=== PATIENT | male | born 1975 | race Caucasian/White ===

== ENCOUNTER 2019-10-18 09:37 | Emergency (ER) | payer OTHER ==
[~2019-10-18] VITALS: Ht 182.9 cm; Wt 87.4 kg
[2019-10-18 09:42] VITALS: BP 164/101
[2019-10-18] MEDS ORDERED: PARO-62 PO (10:45)
== END 2019-10-18 11:10 | disposition home or self-care (01) ==
LOC: ER 09:37
DX: F41.9 Anxiety disorder, unspecified (principal); Z79.899 Other long term (current) drug therapy
CPT/HCPCS: 99281; 99283

== ENCOUNTER 2019-11-25 13:00 | Emergency (ER) | payer OTHER ==
[~2019-11-25] VITALS: Ht 182.9 cm; Wt 77.3 kg
[~2019-11-25 13:00] MED LIST: PARO-62 PO
[2019-11-25 13:56] LABS: BASOPHILS % (AUTO) 0.5 % (0-1); EOSINOPHILS # (AUTO) 0.3 X10'3 (0-0.9); EOSINOPHILS % (AUTO) 4.5 % (0-6); HEMATOCRIT 39.9 % (42.0-52.0); HEMOGLOBIN 13.8 g/dl (14.0-17.9); LYMPHOCYTES # (AUTO) 2.2 X10'3 (1.1-4.8); LYMPHOCYTES % (AUTO) 39.2 % (21-51); MEAN CORPUSCULAR HEMOGLOBIN 31.1 PG (27.0-31.0); MEAN CORPUSCULAR HGB CONC 34.5 g/dL (33.0-36.5); MEAN CORPUSCULAR VOLUME 90.1 FL (78-98); MEAN PLATELET VOLUME 7.5 FL (7.4-10.4); MONOCYTES # (AUTO) 0.6 X10'3 (0-0.9); MONOCYTES % (AUTO) 10.2 % (2-12); NEUTROPHILS # (AUTO) 2.6 X10'3 (1.8-7.7); NEUTROPHILS % (AUTO) 45.6 % (42-75); PLATELET COUNT 283 X10'3 (140-440); RED BLOOD COUNT 4.43 X10'6 (4.70-6.10); RED CELL DISTRIBUTION WIDTH 13.8 % (11.5-14.5); WHITE BLOOD COUNT 5.6 X10'3 (4.5-11.0)
[2019-11-25 14:10] LABS: ALANINE AMINOTRANSFERASE 47 U/L (12-78); ALBUMIN 3.6 G/DL (3.4-5.0); ALBUMIN/GLOBULIN RATIO 0.9 (1.1-1.5); ANION GAP 12 (8-16); ASPARTATE AMINO TRANSFERASE 41 U/L (10-37); BILIRUBIN,TOTAL 0.4 MG/DL (0.1-1.0); BLOOD UREA NITROGEN 10 MG/DL (7-18); BUN/CREATININE RATIO 12.7 (5.4-32.0); CALCIUM 8.4 MG/DL (8.5-10.1); CHLORIDE 106 MMOL/L (99-107); CREATININE 0.79 MG/DL (0.60-1.10); GLUCOSE 146 MG/DL (70-104); POTASSIUM 3.6 MMOL/L (3.5-5.1); SODIUM 143 MMOL/L (135-145); TOTAL CARBON DIOXIDE 24.7 MMOL/L (24-32); TOTAL PROTEIN 7.4 G/DL (6.4-8.2); eGFR > 90 ML/MIN
[2019-11-25 14:11] LABS: ALKALINE PHOSPHATASE 62 IU/L (46-116)
--- NOTE | 2019-11-25 14:41 | NUR ---
PT IS IN A POSITION OF COMFORT ON THE GURNEY
[2019-11-25 15:54] VITALS: BP 156/89
[2019-11-26] MEDS ORDERED: LORA-269 PO (09:00)
[2019-11-26] MEDS ORDERED: ATEN25TA PO (09:00)
== END 2019-11-25 15:55 | disposition home or self-care (01) ==
LOC: ER 13:01
DX: R00.2 Palpitations (principal); F41.9 Anxiety disorder, unspecified; Z79.899 Other long term (current) drug therapy
CPT/HCPCS: 36415; 71045; 80053; 84484; 85025; 93005; 99285

== ENCOUNTER 2019-11-26 08:17 | Emergency (ER) | payer OTHER ==
[~2019-11-26] VITALS: Ht 182.9 cm; Wt 77.3 kg
[2019-11-26] MEDS ORDERED: LORA-269 PO (09:00)
[2019-11-26] MEDS ORDERED: metoprolol tartrate 50mg tablet PO ONE (09:00)
[2019-11-26] MEDS ORDERED: ATEN25TA PO (09:00)
[2019-11-26 09:26] VITALS: BP 157/83
== END 2019-11-26 09:29 | disposition home or self-care (01) ==
LOC: ER 08:18
DX: I10 Essential (primary) hypertension (principal); F41.9 Anxiety disorder, unspecified; Z59.0 Homelessness; Z79.899 Other long term (current) drug therapy
CPT/HCPCS: 93005; 99283

== ENCOUNTER 2020-08-11 14:09 | Emergency (ER) | payer MEDICAID, OTHER ==
[~2020-08-11] VITALS: Ht 182.9 cm; Wt 90.9 kg
[~2020-08-11 14:09] MED LIST changes: +ATEN25TA PO; +LORA-269 PO
--- NOTE | 2020-08-11 14:44 | NUR ---
patietn here for a paxil 20 mg daily refill trying to get it refilled thru [facility]
[2020-08-11 14:45] VITALS: BP 134/87
[2020-08-11] MEDS ORDERED: PARO-62 PO (14:48)
== END 2020-08-11 14:53 | disposition home or self-care (01) ==
LOC: ER 14:10
DX: R07.89 Other chest pain (principal); Z76.0 Encounter for issue of repeat prescription; Z59.0 Homelessness; Z79.899 Other long term (current) drug therapy
CPT/HCPCS: 93005; 99283

== ENCOUNTER 2021-04-05 22:19 | Emergency (ER) | payer MEDICAID, OTHER ==
[~2021-04-05] VITALS: Ht 182.9 cm; Wt 90.0 kg
[2021-04-05] MEDS ORDERED: fentaNYL/PF 50MCG/1 ML 2ML syringe IV ONE (23:50)
[2021-04-06] MEDS ORDERED: morphine 4 MG/ML inj SYRINge IV ONE (02:10)
[2021-04-06] MEDS ORDERED: OXYC-145 PO ×2 (02:42)
[2021-04-06] MEDS ORDERED: oxyCODONE/APAP 5-325mg tablet PO ONE (03:35)
[2021-04-06 03:55] VITALS: BP 113/79
[2021-04-12] MEDS ORDERED: PARO20TA6 PO (16:54)
== END 2021-04-06 03:58 | disposition home or self-care (01) ==
LOC: ER 22:20
DX: S82.201A Unspecified fracture of shaft of right tibia, initial encounter for closed fracture (principal); S82.401A Unspecified fracture of shaft of right fibula, initial encounter for closed fracture; M79.604 Pain in right leg; F41.9 Anxiety disorder, unspecified; Z72.89 Other problems related to lifestyle; Z59.00 Homelessness unspecified; Z79.899 Other long term (current) drug therapy; V99.XXXA Unspecified transport accident, initial encounter; Y93.89 Activity, other specified; Y92.89 Other specified places as the place of occurrence of the external cause; Y99.8 Other external cause status
CPT/HCPCS: 29505; 73590; 96374; 96375; 99284; J2270; J3010

== ENCOUNTER 2021-04-15 09:27 | Day surgery (SDC) | payer MEDICAID ==
[~2021-04-15] VITALS: Ht 182.9 cm; Wt 90.0 kg
[2021-04-15] VITALS (28 sets, daily range): BP systolic 116–173; BP diastolic 76–105
[~2021-04-15 09:27] MED LIST changes: -ATEN25TA PO; -LORA-269 PO; -PARO-62 PO; +PARO20TA6 PO; +ceFAZolin 2gm in dextrose, iso 50 ML IV ONE; +famotidine 20mg tablet PO ONE; +ringers solution, lacted 1,000 ML IV SCH
[2021-04-15 10:30] LABS: BASOPHILS % (AUTO) 0.5 % (0-1); EOSINOPHILS # (AUTO) 0.3 X10'3 (0-0.9); EOSINOPHILS % (AUTO) 3.1 % (0-6); LYMPHOCYTES % (AUTO) 24.2 % (21-51); MEAN CORPUSCULAR HGB CONC 34.8 g/dL (33.0-36.5); MEAN CORPUSCULAR VOLUME 89.2 FL (78-98); MEAN PLATELET VOLUME 7.4 FL (7.4-10.4); MONOCYTES # (AUTO) 0.8 X10'3 (0-0.9); NEUTROPHILS # (AUTO) 5.3 X10'3 (1.8-7.7); NEUTROPHILS % (AUTO) 63.2 % (42-75); PRE OP HEMATOCRIT 39.8 % (42.0-52.0); PRE OP HEMOGLOBIN 13.8 g/dL (14.0-17.9); PRE OP PLATELET COUNT 394 X10'3 (140-440); RED BLOOD COUNT 4.46 X10'6 (4.70-6.10)
[2021-04-15 10:40] LABS: ALBUMIN 3.6 G/DL (3.4-5.0); ALBUMIN/GLOBULIN RATIO 0.8 (1.1-1.5); ALKALINE PHOSPHATASE 81 IU/L (46-116); BLOOD UREA NITROGEN 14 MG/DL (7-18); BUN/CREATININE RATIO 15.4 (5.4-32.0); CALCIUM 9.3 MG/DL (8.5-10.1); CHLORIDE 102 MMOL/L (99-107); CREATININE 0.91 MG/DL (0.60-1.10); PRE OP ALT 37 U/L (30-65); PRE OP ANION GAP 7 (8-16); PRE OP AST 24 U/L (10-37); PRE OP BILIRUB, TOTAL 0.7 MG/DL (0.0-1.0); PRE OP GLUCOSE 96 MG/DL (70-104); PRE OP SODIUM 135 MMOL/L (135-145); TOTAL CARBON DIOXIDE 26.3 MMOL/L (24-32); eGFR > 90 ML/MIN
[2021-04-15] MEDS ORDERED: BUPIVAcaine/PF 2.5 mg/ml (0.25%) 30ml vial ONE (10:40)
[2021-04-15] MEDS ORDERED: midazolam 1 mg/ML 2ml injection ONE (11:01)
[2021-04-15] MEDS ORDERED: fentaNYL /PF 50mcg/ml 5ml ampule ONE (11:01)
[2021-04-15] MEDS ORDERED: meperidine/PF 25mg/ml syringe IV PRN ×3 (11:50)
[2021-04-15] MEDS ORDERED: morphine 2 MG/ML inj. syringe IV PRN (11:50)
[2021-04-15] MEDS ORDERED: morphine 4 MG/ML inj SYRINge IV PRN (11:50)
[2021-04-15] MEDS ORDERED: proCHLORperazine 10 MG/2 ml inj IV PRN (11:50)
[2021-04-15] MEDS ORDERED: ondansetron/PF 4mg/2ml inj IV PRN (11:50)
[2021-04-15] MEDS ORDERED: ringers solution, lacted 1,000 ML IV SCH (11:50)
[2021-04-15] MEDS ORDERED: acetaminophen 1,000mg/100ml IV 100 ML IV ONE (12:02)
[2021-04-15] MEDS ORDERED: dexamethasone sod phosphate 4mg/ml inj. ONE ×2 (12:02→13:55)
[2021-04-15] MEDS ORDERED: LIDOcaine 2% (20mg/ml) 5ml vial ONE (12:02)
[2021-04-15] MEDS ORDERED: ondansetron/PF 4mg/2ml inj ONE (12:02)
[2021-04-15] MEDS ORDERED: propofol inj 20 ML IV ONE (12:02)
[2021-04-15] MEDS ORDERED: hydrALAZINE 20mg/ml inj. IV ONE (12:02)
[2021-04-15] MEDS ORDERED: neostigmine methylsulfate 1 MG/ML 10ml vial ONE (12:18)
[2021-04-15] MEDS ORDERED: glycopyrrolate 0.2mg/ml inj ONE (12:18)
[2021-04-15] MEDS ORDERED: morphine 4 MG/ML inj SYRINge ONE (12:25)
--- NOTE | 2021-04-15 12:35 | NUR ---
Received from OR via [facility], accompanied by Anesthesiologist DR MOYER and report given by Anesthesiologist. PT DROWSY W/LMA, NO S/S OF DISTRESS/DISCOMFORT. LMA D/CD BY DR MOYER. PTS BP ELEVATED, ORDERS RECEIVED BY DR MOYER TO GIVE 5 MG LABETALOL. Addendum: 04/15/21 at 1332 by Ana Ravi RN Amended: Links added.
[2021-04-15] MEDS ORDERED: labetalol 20mg/4ml (5mg/ml) syringe IV ONE (12:45)
[2021-04-15] MEDS ORDERED: ketorolac trometh. 30mg/ml inj. IV ONE (13:10)
[2021-04-15] MEDS ORDERED: HYDROmorphone/PF 0.2 MG/ML SYRINGE IV PRN (13:10)
[2021-04-15] MEDS ORDERED: HYDROmorphone/PF 0.2 MG/ML SYRINGE ONE (13:13)
--- NOTE | 2021-04-15 13:17 | NUR ---
PT IN SEVERE PAIN, DR MOYER AT BEDSIDE, ORDERS TO GIVE DILAUDID AND ORDER TORADOL, 0.2 MG DILAUDID GIVEN, WAITING TO GIVE TORADOL AND 0.4 MG DILAUDID ONCE RX APPROVES MEDICATION. Addendum: 04/15/21 at 1318 by Ana Ravi RN Amended: Links added.
[2021-04-15] MEDS: HYDROmorphone/PF 0.2 MG/ML SYRINGE IV PRN ×2 (13:23→13:51)
[2021-04-15] MEDS ORDERED: cloNIDine hcl/PF 100mcg/ml inj ONE (13:52)
[2021-04-15] MEDS ORDERED: ROPIVAcaine 0.5% (5mg/ml) 30ml vial ONE (13:53)
--- NOTE | 2021-04-15 14:20 | NUR ---
PT CONTINUED W/PAIN, CALLED DR CONDON EARLIER, IS AWARE, DR MOYER HERE, DISCUSSED ADDUCTOR CANAL BLOCK W/PT AND PTS PARENTS WHO AGREE FOR BLOCK, DONE AT BEDSIDE W/DR MOYER. PT TOLERATED PROCEDURE WELL. Addendum: 04/15/21 at 1423 by Ana Ravi RN Amended: Links added.
--- NOTE | 2021-04-15 15:15 | NUR ---
DR CONDON IN TO SEE PT, PT PAIN MUCH IMPROVED, PLAN TO D/C PT HOME LATER TODAY. Addendum: 04/15/21 at 1603 by Ana Ravi RN Amended: Links added.
--- NOTE | 2021-04-15 18:15 | NUR ---
PTS PAIN TOLERABLE, PT VOIDED X 2, BLADDER SCANNED FOR 200 ML POST VOID, CALLED DR CONDON AND UPDATED, [place] TO D/C PT TO HOME. D/C INSTRUCTIONS GIVEN AND GONE OVER W/PT WHO VERBALIZED UNDERSTANDING. PT D/CD TO HOME VIA W/C TO PRIVATE VEHICLE W/O INCIDENT. Addendum: 04/15/21 at 1826 by Ana Ravi RN Amended: Links added.
== END 2021-04-15 18:15 | disposition home or self-care (01) ==
LOC: OR 09:27
PROVIDERS: ATTEND Orthopaedic Surgery Hand Surgery
DX: S82.291A Other fracture of shaft of right tibia, initial encounter for closed fracture (principal); S82.491A Other fracture of shaft of right fibula, initial encounter for closed fracture; F41.9 Anxiety disorder, unspecified; G89.18 Other acute postprocedural pain; Z20.822 Contact with and (suspected) exposure to COVID-19; Z79.899 Other long term (current) drug therapy; X58.XXXA Exposure to other specified factors, initial encounter; Y93.89 Activity, other specified; Y92.89 Other specified places as the place of occurrence of the external cause; Y99.8 Other external cause status
CPT/HCPCS: 27759; 36415; 64447; 73590; 76000; 76942; 80053; 85025; 87635; 93005; A6222; C1713; C9803; J0131; J0360; J0735; J1100; J1170; J1885; J2001; J2250; J2270; J2405; J2704; J2710; J3010; J3490; Z7506; Z7508; Z7512; A4215; A4618; A6449; A7000; J2795; J7120

== ENCOUNTER 2021-11-23 10:03 | Emergency (ER) | payer MEDICAID ==
[~2021-11-23] VITALS: Ht 182.9 cm; Wt 90.0 kg
[~2021-11-23 10:03] MED LIST changes: -ceFAZolin 2gm in dextrose, iso 50 ML IV ONE; -famotidine 20mg tablet PO ONE; -ringers solution, lacted 1,000 ML IV SCH
[2021-11-23 11:49] LABS: BASOPHILS # (AUTO) 0.1 X10'3 (0-0.2); EOSINOPHILS # (AUTO) 0.2 X10'3 (0-0.9); EOSINOPHILS % (AUTO) 4.9 % (0-6); HEMOGLOBIN 13.9 g/dl (14.0-17.9); LYMPHOCYTES # (AUTO) 2.2 X10'3 (1.1-4.8); MEAN CORPUSCULAR HEMOGLOBIN 30.7 PG (27.0-31.0); MEAN CORPUSCULAR HGB CONC 34.8 g/dL (33.0-36.5); MEAN CORPUSCULAR VOLUME 88.1 FL (78-98); MEAN PLATELET VOLUME 7.4 FL (7.4-10.4); MONOCYTES # (AUTO) 0.6 X10'3 (0-0.9); MONOCYTES % (AUTO) 12.7 % (2-12); NEUTROPHILS # (AUTO) 1.9 X10'3 (1.8-7.7); NEUTROPHILS % (AUTO) 38.4 % (42-75); PLATELET COUNT 226 X10'3 (140-440); RED BLOOD COUNT 4.55 X10'6 (4.70-6.10); RED CELL DISTRIBUTION WIDTH 13.6 % (11.5-14.5); WHITE BLOOD COUNT 5.1 X10'3 (4.5-11.0)
[2021-11-23 12:13] LABS: ALANINE AMINOTRANSFERASE 58 U/L (12-78); ALBUMIN 3.8 G/DL (3.4-5.0); ALKALINE PHOSPHATASE 73 IU/L (46-116); ANION GAP 6 (8-16); ASPARTATE AMINO TRANSFERASE 45 U/L (10-37); BILIRUBIN,TOTAL 0.5 MG/DL (0.1-1.0); BLOOD UREA NITROGEN 9 MG/DL (7-18); BUN/CREATININE RATIO 10.5 (5.4-32.0); CALCIUM 8.5 MG/DL (8.5-10.1); CHLORIDE 103 MMOL/L (99-107); CREATININE 0.86 MG/DL (0.60-1.10); GLUCOSE 102 MG/DL (70-104); POTASSIUM 4.5 MMOL/L (3.5-5.1); SODIUM 137 MMOL/L (135-145); TOTAL CARBON DIOXIDE 28.2 MMOL/L (24-32); TOTAL PROTEIN 7.6 G/DL (6.4-8.2); eGFR > 90 ML/MIN
[2021-11-23 12:15] VITALS: BP 132/78
== END 2021-11-23 12:30 | disposition home or self-care (01) ==
LOC: ER 10:04
DX: F10.239 Alcohol dependence with withdrawal, unspecified (principal); R07.89 Other chest pain; R00.2 Palpitations; M79.602 Pain in left arm; F41.9 Anxiety disorder, unspecified; Z59.00 Homelessness unspecified; Z79.899 Other long term (current) drug therapy; Y90.0 Blood alcohol level of less than 20 mg/100 ml
CPT/HCPCS: 36415; 71045; 80053; 84484; 85025; 93005; 99285

== ENCOUNTER 2022-04-01 10:50 | Emergency (ER) | payer MEDICAID ==
[~2022-04-01] VITALS: Ht 182.9 cm; Wt 90.9 kg
[2022-04-01 10:58] VITALS: BP 162/109
[2022-04-01 11:14] LABS: BASOPHILS # (AUTO) 0.1 X10'3 (0-0.2); BASOPHILS % (AUTO) 0.7 % (0-1); EOSINOPHILS # (AUTO) 0.3 X10'3 (0-0.9); EOSINOPHILS % (AUTO) 2.9 % (0-6); HEMATOCRIT 41.8 % (42.0-52.0); HEMOGLOBIN 14.6 g/dl (14.0-17.9); LYMPHOCYTES # (AUTO) 2.8 X10'3 (1.1-4.8); LYMPHOCYTES % (AUTO) 32.6 % (21-51); MEAN CORPUSCULAR HEMOGLOBIN 31.5 PG (27.0-31.0); MEAN CORPUSCULAR HGB CONC 35.1 g/dL (33.0-36.5); MEAN CORPUSCULAR VOLUME 89.7 FL (78-98); MEAN PLATELET VOLUME 7.5 FL (7.4-10.4); MONOCYTES # (AUTO) 0.7 X10'3 (0-0.9); MONOCYTES % (AUTO) 8.1 % (2-12); NEUTROPHILS # (AUTO) 4.8 X10'3 (1.8-7.7); NEUTROPHILS % (AUTO) 55.7 % (42-75); PLATELET COUNT 334 X10'3 (140-440); RED BLOOD COUNT 4.65 X10'6 (4.70-6.10); RED CELL DISTRIBUTION WIDTH 13.2 % (11.5-14.5); WHITE BLOOD COUNT 8.7 X10'3 (4.5-11.0)
[2022-04-01 11:43] LABS: ALANINE AMINOTRANSFERASE 63 U/L (12-78); ALBUMIN 3.7 G/DL (3.4-5.0); ALBUMIN/GLOBULIN RATIO 0.9 (1.1-1.5); ALKALINE PHOSPHATASE 74 IU/L (46-116); ANION GAP 9 (8-16); ASPARTATE AMINO TRANSFERASE 43 U/L (10-37); BILIRUBIN,TOTAL 0.3 MG/DL (0.1-1.0); BLOOD UREA NITROGEN 11 MG/DL (7-18); BUN/CREATININE RATIO 12.9 (5.4-32.0); CALCIUM 8.9 MG/DL (8.5-10.1); CHLORIDE 103 MMOL/L (99-107); CREATININE 0.85 MG/DL (0.60-1.10); GLUCOSE 140 MG/DL (70-104); LIPASE 96 U/L (73-393); POTASSIUM 3.8 MMOL/L (3.5-5.1); SODIUM 139 MMOL/L (135-145); TOTAL CARBON DIOXIDE 26.9 MMOL/L (24-32); TOTAL PROTEIN 7.6 G/DL (6.4-8.2); eGFR > 90 ML/MIN
--- NOTE | 2022-04-01 15:22 | NUR ---
Attempted to contact patient, Patient was not in lobby when called back to room. Per cash accounting clerk, patient had stated they were leaving. aware.
== END 2022-04-01 15:23 | disposition left against medical advice (07) ==
LOC: ER 10:50
DX: R10.9 Unspecified abdominal pain (principal); Z53.21 Procedure and treatment not carried out due to patient leaving prior to being seen by health care provider
CPT/HCPCS: 36415; 80053; 83690; 85025

== ENCOUNTER 2023-04-22 13:45 | Emergency (ER) | payer MEDICAID ==
[~2023-04-22] VITALS: Ht 182.9 cm; Wt 100.0 kg
[2023-04-22 14:33] LABS: BASOPHILS # (AUTO) 0.1 X10'3 (0-0.2); BASOPHILS % (AUTO) 0.6 % (0-1); EOSINOPHILS # (AUTO) 0.5 X10'3 (0-0.9); EOSINOPHILS % (AUTO) 4.7 % (0-6); HEMATOCRIT 39.1 % (42.0-52.0); HEMOGLOBIN 13.1 g/dl (14.0-17.9); LYMPHOCYTES # (AUTO) 3.3 X10'3 (1.1-4.8); LYMPHOCYTES % (AUTO) 32.4 % (21-51); MEAN CORPUSCULAR HEMOGLOBIN 30.1 PG (27.0-31.0); MEAN CORPUSCULAR HGB CONC 33.5 g/dL (33.0-36.5); MEAN CORPUSCULAR VOLUME 89.9 FL (78-98); MEAN PLATELET VOLUME 7.8 FL (7.4-10.4); MONOCYTES # (AUTO) 0.9 X10'3 (0-0.9); MONOCYTES % (AUTO) 9.2 % (2-12); NEUTROPHILS # (AUTO) 5.4 X10'3 (1.8-7.7); NEUTROPHILS % (AUTO) 53.1 % (42-75); PLATELET COUNT 275 X10'3 (140-440); RED BLOOD COUNT 4.35 X10'6 (4.70-6.10); WHITE BLOOD COUNT 10.2 X10'3 (4.5-11.0)
[2023-04-22 14:58] LABS: ALANINE AMINOTRANSFERASE 43 U/L (12-78); ALBUMIN 3.7 G/DL (3.4-5.0); ALKALINE PHOSPHATASE 61 IU/L (46-116); ANION GAP 12 (8-16); ASPARTATE AMINO TRANSFERASE 35 U/L (10-37); BILIRUBIN,TOTAL 0.5 MG/DL (0.1-1.0); BLOOD UREA NITROGEN 11 MG/DL (7-18); BUN/CREATININE RATIO 11.8 (10.0-20.0); CALCIUM 9.1 MG/DL (8.5-10.1); CHLORIDE 102 MMOL/L (99-107); CREATININE 0.93 MG/DL (0.60-1.10); GLUCOSE 131 MG/DL (70-104); POTASSIUM 3.7 MMOL/L (3.5-5.1); SODIUM 138 MMOL/L (135-145); TOTAL CARBON DIOXIDE 24.3 MMOL/L (24-32); TOTAL PROTEIN 7.5 G/DL (6.4-8.2); eCRCL 109 ML/MIN; eGFR 87 ML/MIN
[2023-04-22 15:25] VITALS: BP 149/103; PULSE 83; RESP 14; TEMP 98.3; O2SAT 99
== END 2023-04-22 16:53 | disposition home or self-care (01) ==
LOC: ER 13:46
DX: R07.9 Chest pain, unspecified (principal); F41.9 Anxiety disorder, unspecified
CPT/HCPCS: 36415; 71045; 80053; 83880; 84484; 85025; 93005; 99285

== ENCOUNTER 2023-06-05 20:36 | Emergency (ER) | payer SELFPAY | END 2023-06-05 21:32 | disposition left against medical advice (07) | LOC: ER 20:37 | DX: Z00.8 Encounter for other general examination (principal); Z53.21 Procedure and treatment not carried out due to patient leaving prior to being seen by health care provider ==

== ENCOUNTER 2023-06-20 10:05 | Emergency (ER) | payer MEDICAID ==
[~2023-06-20] VITALS: Ht 182.9 cm; Wt 94.0 kg
[2023-06-20] MEDS ORDERED: normal saline 1000ML IV soln IVB ONE (11:45)
[2023-06-20 12:18] LABS: BILIRUBIN,URINE NEGATIVE (Neg); CLARITY,URINE CLEAR (Clear); COLOR,URINE YELLOW (Yellow); GLUCOSE, URINE NEGATIVE (Neg); KETONES,URINE NEGATIVE (Neg); LEUKOCYTE ESTERASE ,URINE NEGATIVE (Neg); NITRITES, URINE NEGATIVE (Neg); OCCULT BLOOD,URINE NEGATIVE (Neg); PH,URINE 7.5 (4.8-8.0); PROTEIN,URINE TRACE mg/dl (Neg); UROBILINOGEN,URINE 0.2 E.U/dL (0.2-1.0)
[2023-06-20 12:19] LABS: UA COLLECTION TYPE CLN CATCH MIDSTREAM
[2023-06-20 12:27] LABS: BACTERIA,URINE NONE SEEN /HPF (Neg); MUCUS STRANDS NONE SEEN /LPF (Neg); RBC,URINE 0-2 /HPF (0-2); SQUAMOUS EPITHELIAL CELL,UR NONE SEEN /LPF (FEW); WBC,URINE 0-4 /HPF (0-4)
[2023-06-20 12:45] LABS: BASOPHILS # (AUTO) 0.1 X10'3 (0-0.2); BASOPHILS % (AUTO) 0.8 % (0-1); EOSINOPHILS # (AUTO) 0.3 X10'3 (0-0.9); EOSINOPHILS % (AUTO) 3.3 % (0-6); HEMATOCRIT 38.5 % (42.0-52.0); HEMOGLOBIN 12.9 g/dl (14.0-17.9); LYMPHOCYTES # (AUTO) 2.1 X10'3 (1.1-4.8); LYMPHOCYTES % (AUTO) 22.9 % (21-51); MEAN CORPUSCULAR HEMOGLOBIN 29.3 PG (27.0-31.0); MEAN CORPUSCULAR HGB CONC 33.7 g/dL (33.0-36.5); MEAN PLATELET VOLUME 7.9 FL (7.4-10.4); MONOCYTES # (AUTO) 1.2 X10'3 (0-0.9); MONOCYTES % (AUTO) 13.3 % (2-12); NEUTROPHILS # (AUTO) 5.4 X10'3 (1.8-7.7); NEUTROPHILS % (AUTO) 59.7 % (42-75); PLATELET COUNT 235 X10'3 (140-440); RED BLOOD COUNT 4.42 X10'6 (4.70-6.10); RED CELL DISTRIBUTION WIDTH 13.7 % (11.5-14.5); WHITE BLOOD COUNT 9.1 X10'3 (4.5-11.0)
[2023-06-20 12:50] LABS: D-DIMER 0.22 MG/L FEU (0-0.50)
[2023-06-20 13:04] LABS: ALANINE AMINOTRANSFERASE 73 U/L (12-78); ALBUMIN 3.3 G/DL (3.4-5.0); ALBUMIN/GLOBULIN RATIO 0.8 (1.1-1.5); ALKALINE PHOSPHATASE 66 IU/L (46-116); ANION GAP 7 (8-16); ASPARTATE AMINO TRANSFERASE 64 U/L (10-37); BILIRUBIN,TOTAL 0.4 MG/DL (0.1-1.0); BLOOD UREA NITROGEN 8 MG/DL (7-18); BUN/CREATININE RATIO 8.3 (10.0-20.0); CALCIUM 8.8 MG/DL (8.5-10.1); CHLORIDE 101 MMOL/L (99-107); CREATININE 0.96 MG/DL (0.60-1.10); GLUCOSE 94 MG/DL (70-104); POTASSIUM 3.1 MMOL/L (3.5-5.1); SODIUM 137 MMOL/L (135-145); TOTAL CARBON DIOXIDE 28.7 MMOL/L (24-32); TOTAL PROTEIN 7.5 G/DL (6.4-8.2); eCRCL 106 ML/MIN; eGFR 84 ML/MIN
[2023-06-20] MEDS ORDERED: potassium Cl 40MEQ/1/2NS 520ml 520 ML IV ONE (13:55)
[2023-06-20] MEDS ORDERED: POTASSIUM BICARB 20meq eff tab 20 MEQ TABLET.EFF PO SCH (14:05)
[2023-06-20] MEDS ORDERED: ibuprofen 200mg tablet PO ONE (14:10)
[2023-06-20 14:32] VITALS: BP 149/92; PULSE 90; RESP 17; TEMP 98.7; O2SAT 97
== END 2023-06-20 14:34 | disposition home or self-care (01) ==
LOC: ER 10:06
DX: J22 Unspecified acute lower respiratory infection (principal); Z20.822 Contact with and (suspected) exposure to COVID-19; R79.81 Abnormal blood-gas level; I10 Essential (primary) hypertension; Z79.899 Other long term (current) drug therapy
CPT/HCPCS: 36415; 71046; 80053; 81001; 83605; 84484; 85025; 85379; 87040; 87502; 87503; 87811; 93005; 96360; 99285; J7030

== ENCOUNTER 2023-12-31 09:44 | Emergency (ER) | payer MEDICAID, OTHER ==
[~2023-12-31] VITALS: Ht 182.9 cm; Wt 96.0 kg
[2023-12-31 11:00] LABS: BASOPHILS # (AUTO) 0.1 X10'3 (0-0.2); BASOPHILS % (AUTO) 0.9 % (0-1); EOSINOPHILS # (AUTO) 0.4 X10'3 (0-0.9); EOSINOPHILS % (AUTO) 4.2 % (0-6); HEMOGLOBIN 12.1 g/dl (14.0-17.9); LYMPHOCYTES # (AUTO) 2.4 X10'3 (1.1-4.8); LYMPHOCYTES % (AUTO) 28.2 % (21-51); MEAN CORPUSCULAR HEMOGLOBIN 29.4 PG (27.0-31.0); MEAN CORPUSCULAR HGB CONC 33.7 g/dL (33.0-36.5); MEAN CORPUSCULAR VOLUME 87.3 FL (78-98); MEAN PLATELET VOLUME 7.7 FL (7.4-10.4); MONOCYTES # (AUTO) 0.9 X10'3 (0-0.9); MONOCYTES % (AUTO) 11.1 % (2-12); NEUTROPHILS # (AUTO) 4.7 X10'3 (1.8-7.7); NEUTROPHILS % (AUTO) 55.6 % (42-75); PLATELET COUNT 324 X10'3 (140-440); RED BLOOD COUNT 4.13 X10'6 (4.70-6.10); RED CELL DISTRIBUTION WIDTH 15.3 % (11.5-14.5); WHITE BLOOD COUNT 8.5 X10'3 (4.5-11.0)
[2023-12-31 11:10] LABS: ALANINE AMINOTRANSFERASE 72 U/L (12-78); ALBUMIN 3.3 G/DL (3.4-5.0); ALBUMIN/GLOBULIN RATIO 0.8 (1.1-1.5); ALKALINE PHOSPHATASE 63 IU/L (46-116); ANION GAP 9 (8-16); ASPARTATE AMINO TRANSFERASE 56 U/L (10-37); BILIRUBIN,TOTAL 0.5 MG/DL (0.1-1.0); BLOOD UREA NITROGEN 10 MG/DL (7-18); BUN/CREATININE RATIO 11.9 (10.0-20.0); CALCIUM 8.2 MG/DL (8.5-10.1); CHLORIDE 104 MMOL/L (99-107); CREATININE 0.84 MG/DL (0.60-1.10); GLUCOSE 147 MG/DL (70-104); LIPASE 67 U/L (16-77); POTASSIUM 3.5 MMOL/L (3.5-5.1); SODIUM 138 MMOL/L (135-145); TOTAL CARBON DIOXIDE 25.1 MMOL/L (24-32); TOTAL PROTEIN 7.7 G/DL (6.4-8.2); eCRCL 119 ML/MIN; eGFR > 90 ML/MIN
[2023-12-31 11:32] LABS: BILIRUBIN,URINE MODERATE (Neg); CLARITY,URINE CLOUDY (Clear); COLOR,URINE YELLOW (Yellow); GLUCOSE, URINE NEGATIVE (Neg); KETONES,URINE TRACE mg/dl (Neg); LEUKOCYTE ESTERASE ,URINE NEGATIVE (Neg); NITRITES, URINE NEGATIVE (Neg); OCCULT BLOOD,URINE NEGATIVE (Neg); PH,URINE 6.5 (4.8-8.0); PROTEIN,URINE TRACE mg/dl (Neg)
[2023-12-31 11:33] LABS: UA COLLECTION TYPE VOIDED
[2023-12-31 11:45] LABS: SQUAMOUS EPITHELIAL CELL,UR NONE SEEN /LPF (FEW)
[2023-12-31 11:46] LABS: BACTERIA,URINE NONE SEEN /HPF (Neg); CAL OXALATE CRYSTALS 4+ /HPF (NEGATIVE); RBC,URINE NONE SEEN /HPF (0-2); WBC,URINE 0-4 /HPF (0-4)
[2023-12-31] MEDS ORDERED: HYDR25SU32 RC (12:36)
[2023-12-31] MEDS ORDERED: HYDR30CR79 TOP (12:36)
[2023-12-31 13:13] VITALS: BP 154/90; PULSE 87; RESP 16; TEMP 98.6; O2SAT 99
== END 2023-12-31 13:14 | disposition home or self-care (01) ==
LOC: ER 09:45
DX: K64.8 Other hemorrhoids (principal); K62.5 Hemorrhage of anus and rectum; I10 Essential (primary) hypertension; F41.9 Anxiety disorder, unspecified; Z72.89 Other problems related to lifestyle; Z79.899 Other long term (current) drug therapy; Z59.00 Homelessness unspecified
CPT/HCPCS: 36415; 80053; 81001; 83690; 85025; 99283

== ENCOUNTER 2024-03-03 10:45 | Emergency (ER) | payer MEDICAID ==
[~2024-03-03] VITALS: Ht 182.9 cm; Wt 90.0 kg
[~2024-03-03 10:45] MED LIST changes: +HYDR25SU32 RC; +HYDR30CR79 TOP
[2024-03-03 10:46] VITALS: TEMP 98.2
[2024-03-03 11:10] LABS: BASOPHILS % (AUTO) 0.4 % (0-1); EOSINOPHILS # (AUTO) 0.1 X10'3 (0-0.9); EOSINOPHILS % (AUTO) 0.9 % (0-6); HEMATOCRIT 37.6 % (42.0-52.0); HEMOGLOBIN 12.8 g/dl (14.0-17.9); LYMPHOCYTES # (AUTO) 2.3 X10'3 (1.1-4.8); LYMPHOCYTES % (AUTO) 23.4 % (21-51); MEAN CORPUSCULAR HEMOGLOBIN 29.7 PG (27.0-31.0); MEAN CORPUSCULAR HGB CONC 34.1 g/dL (33.0-36.5); MEAN CORPUSCULAR VOLUME 86.9 FL (78-98); MEAN PLATELET VOLUME 7.2 FL (7.4-10.4); MONOCYTES % (AUTO) 10.1 % (2-12); NEUTROPHILS # (AUTO) 6.3 X10'3 (1.8-7.7); NEUTROPHILS % (AUTO) 65.2 % (42-75); PLATELET COUNT 369 X10'3 (140-440); RED BLOOD COUNT 4.33 X10'6 (4.70-6.10); RED CELL DISTRIBUTION WIDTH 15.2 % (11.5-14.5); WHITE BLOOD COUNT 9.6 X10'3 (4.5-11.0)
[2024-03-03] MEDS: normal saline 1000ml 1,000 ML IV ONE (11:31)
[2024-03-03] MEDS: LORazepam 2 mg/ml vial IM ONE (11:32)
[2024-03-03] MEDS: thiamine 100mg/ml 2ml inj. IM ONE (11:32)
[2024-03-03] MEDS: magnesium sulf-water 2g/50mL 50 ML IV ONE (11:32)
[2024-03-03 11:38] LABS: ALANINE AMINOTRANSFERASE 69 U/L (12-78); ALBUMIN 3.6 G/DL (3.4-5.0); ALBUMIN/GLOBULIN RATIO 0.8 (1.1-1.5); ALKALINE PHOSPHATASE 60 IU/L (46-116); ANION GAP 11 (8-16); ASPARTATE AMINO TRANSFERASE 61 U/L (10-37); BILIRUBIN,TOTAL 0.4 MG/DL (0.1-1.0); BLOOD UREA NITROGEN 9 MG/DL (7-18); BUN/CREATININE RATIO 10.1 (10.0-20.0); CALCIUM 8.7 MG/DL (8.5-10.1); CHLORIDE 102 MMOL/L (99-107); CREATININE 0.89 MG/DL (0.60-1.10); GLUCOSE 134 MG/DL (70-104); POTASSIUM 3.3 MMOL/L (3.5-5.1); SODIUM 137 MMOL/L (135-145); TOTAL CARBON DIOXIDE 24.5 MMOL/L (24-32); TOTAL PROTEIN 8.1 G/DL (6.4-8.2); eCRCL 113 ML/MIN; eGFR > 90 ML/MIN
[2024-03-03 11:40] LABS: PRO BRAIN NATRIURETIC PEPTIDE < 30 PG/ML (0-125)
[2024-03-03 11:52] LABS: ETHANOL 47 MG/DL (<10)
[2024-03-03 12:03] LABS: BILIRUBIN,URINE NEGATIVE (Neg); CLARITY,URINE SLIGHTLY CLOUDY (Clear); COLOR,URINE YELLOW (Yellow); GLUCOSE, URINE NEGATIVE (Neg); KETONES,URINE NEGATIVE (Neg); LEUKOCYTE ESTERASE ,URINE NEGATIVE (Neg); NITRITES, URINE NEGATIVE (Neg); OCCULT BLOOD,URINE NEGATIVE (Neg); PH,URINE 6.5 (4.8-8.0); PROTEIN,URINE 30 mg/dl (Neg)
[2024-03-03 12:06] LABS: URINE AMPHETAMINE SCREEN NEGATIVE (Neg); URINE BARBITUATE SCREEN NEGATIVE (Neg); URINE BENZODIAZEPINES SCREEN NEGATIVE (Neg); URINE CANNABINOID SCREEN NEGATIVE (Neg); URINE COCAINE SCREEN NEGATIVE (Neg); URINE METHADONE SCREEN NEGATIVE (Neg); URINE OPIATE SCREEN NEGATIVE (Neg); URINE PHENCYCLIDINE SCREEN NEGATIVE (Neg)
[2024-03-03 12:07] LABS: UA COLLECTION TYPE VOIDED
[2024-03-03 12:08] LABS: MUCUS STRANDS MODERATE /LPF (Neg); SQUAMOUS EPITHELIAL CELL,UR FEW /LPF (FEW)
[2024-03-03 12:09] LABS: BACTERIA,URINE 1+ /HPF (Neg); WBC,URINE 20-30 /HPF (0-4)
[2024-03-03] MEDS ORDERED: CHLO25CA10 PO (12:38)
[2024-03-03] MEDS ORDERED: CEFU250T95 PO (12:38)
[2024-03-03] MEDS ORDERED: NALT50TA5 PO (12:39)
[2024-03-03 13:39] VITALS: BP 149/97; PULSE 111; O2SAT 97
[2024-03-03 13:40] VITALS: RESP 19
[2024-03-03] MEDS: chlordiazePOXIDE 25mg capsule PO ONE (14:04)
== END 2024-03-03 14:12 | disposition home or self-care (01) ==
LOC: ER 10:45
DX: F10.239 Alcohol dependence with withdrawal, unspecified (principal); I10 Essential (primary) hypertension; F41.9 Anxiety disorder, unspecified; Z79.899 Other long term (current) drug therapy; Z79.51 Long term (current) use of inhaled steroids; Z59.00 Homelessness unspecified; Z72.89 Other problems related to lifestyle; Z98.890 Other specified postprocedural states
CPT/HCPCS: 36415; 71045; 80053; 80305; 80320; 81001; 83880; 84484; 85025; 87088; 93005; 96365; 96366; 96372; 99285; J2060; J3411; J7030

== ENCOUNTER 2024-03-31 07:44 | Emergency (ER) | payer MEDICAID ==
[~2024-03-31] VITALS: Ht 182.9 cm; Wt 87.7 kg
[~2024-03-31 07:44] MED LIST changes: +CHLO25CA10 PO; +NALT50TA5 PO
[2024-03-31] MEDS ORDERED: CHLO25CA10 PO (09:04)
[2024-03-31] MEDS: chlordiazePOXIDE 25mg capsule PO ONE (09:14)
[2024-03-31 09:16] VITALS: BP 154/96; PULSE 90; RESP 12; TEMP 98.4; O2SAT 96
== END 2024-03-31 09:22 | disposition home or self-care (01) ==
LOC: ER 07:45
DX: F10.239 Alcohol dependence with withdrawal, unspecified (principal); I10 Essential (primary) hypertension; F17.200 Nicotine dependence, unspecified, uncomplicated; Z79.899 Other long term (current) drug therapy; Z59.00 Homelessness unspecified; Y90.9 Presence of alcohol in blood, level not specified
CPT/HCPCS: 99283

== ENCOUNTER 2024-04-29 08:05 | Emergency (ER) | payer MEDICAID ==
[~2024-04-29] VITALS: Ht 182.9 cm; Wt 88.2 kg
[2024-04-29 08:54] LABS: BASOPHILS # (AUTO) 0.1 X10'3 (0-0.2); BASOPHILS % (AUTO) 0.6 % (0-1); EOSINOPHILS # (AUTO) 0.3 X10'3 (0-0.9); EOSINOPHILS % (AUTO) 2.8 % (0-6); HEMATOCRIT 38.7 % (42.0-52.0); HEMOGLOBIN 13.1 g/dl (14.0-17.9); LYMPHOCYTES # (AUTO) 2.4 X10'3 (1.1-4.8); LYMPHOCYTES % (AUTO) 22.1 % (21-51); MEAN CORPUSCULAR HEMOGLOBIN 29.5 PG (27.0-31.0); MEAN CORPUSCULAR HGB CONC 33.9 g/dL (33.0-36.5); MEAN CORPUSCULAR VOLUME 86.9 FL (78-98); MEAN PLATELET VOLUME 7.9 FL (7.4-10.4); MONOCYTES # (AUTO) 0.9 X10'3 (0-0.9); MONOCYTES % (AUTO) 8.6 % (2-12); NEUTROPHILS # (AUTO) 7.2 X10'3 (1.8-7.7); NEUTROPHILS % (AUTO) 65.9 % (42-75); PLATELET COUNT 408 X10'3 (140-440); RED BLOOD COUNT 4.45 X10'6 (4.70-6.10); RED CELL DISTRIBUTION WIDTH 15.4 % (11.5-14.5); WHITE BLOOD COUNT 10.8 X10'3 (4.5-11.0)
[2024-04-29 09:16] LABS: ALANINE AMINOTRANSFERASE 43 U/L (12-78); ALBUMIN 3.8 G/DL (3.4-5.0); ALBUMIN/GLOBULIN RATIO 0.9 (1.1-1.5); ALKALINE PHOSPHATASE 56 IU/L (46-116); ANION GAP 9 (8-16); ASPARTATE AMINO TRANSFERASE 41 U/L (10-37); BILIRUBIN,TOTAL 0.4 MG/DL (0.1-1.0); BLOOD UREA NITROGEN 13 MG/DL (7-18); BUN/CREATININE RATIO 14.4 (10.0-20.0); CALCIUM 8.3 MG/DL (8.5-10.1); CHLORIDE 101 MMOL/L (99-107); GLUCOSE 104 MG/DL (70-104); POTASSIUM 3.7 MMOL/L (3.5-5.1); SODIUM 137 MMOL/L (135-145); TOTAL CARBON DIOXIDE 27.2 MMOL/L (24-32); eCRCL 111 ML/MIN; eGFR 90 ML/MIN
[2024-04-29 09:24] LABS: PRO BRAIN NATRIURETIC PEPTIDE < 30 PG/ML (0-125)
[2024-04-29] MEDS: diazepam 5mg tablet PO ONE ×2 (10:07→10:36)
[2024-04-29 11:26] VITALS: BP 147/95; PULSE 94; RESP 22; TEMP 98.7; O2SAT 94
== END 2024-04-29 11:28 | disposition home or self-care (01) ==
LOC: ER 08:06
DX: F10.239 Alcohol dependence with withdrawal, unspecified (principal); R07.89 Other chest pain; I10 Essential (primary) hypertension; F41.9 Anxiety disorder, unspecified; Z79.899 Other long term (current) drug therapy; Y90.9 Presence of alcohol in blood, level not specified
CPT/HCPCS: 36415; 71045; 80053; 83880; 84484; 85025; 93005; 99285

== ENCOUNTER 2024-05-01 17:20 | Emergency (ER) | payer MEDICAID ==
[~2024-05-01] VITALS: Ht 182.9 cm; Wt 87.0 kg
[2024-05-01 17:29] VITALS: TEMP 98.7; O2SAT 95
[2024-05-01 17:59] LABS: BASOPHILS # (AUTO) 0.1 X10'3 (0-0.2); BASOPHILS % (AUTO) 0.8 % (0-1); EOSINOPHILS # (AUTO) 0.4 X10'3 (0-0.9); EOSINOPHILS % (AUTO) 5.1 % (0-6); HEMATOCRIT 41.1 % (42.0-52.0); HEMOGLOBIN 13.8 g/dl (14.0-17.9); LYMPHOCYTES # (AUTO) 4.1 X10'3 (1.1-4.8); LYMPHOCYTES % (AUTO) 46.8 % (21-51); MEAN CORPUSCULAR HEMOGLOBIN 29.5 PG (27.0-31.0); MEAN CORPUSCULAR HGB CONC 33.7 g/dL (33.0-36.5); MEAN CORPUSCULAR VOLUME 87.7 FL (78-98); MEAN PLATELET VOLUME 7.4 FL (7.4-10.4); MONOCYTES # (AUTO) 0.6 X10'3 (0-0.9); MONOCYTES % (AUTO) 6.4 % (2-12); NEUTROPHILS # (AUTO) 3.6 X10'3 (1.8-7.7); NEUTROPHILS % (AUTO) 40.9 % (42-75); PLATELET COUNT 482 X10'3 (140-440); RED BLOOD COUNT 4.68 X10'6 (4.70-6.10); RED CELL DISTRIBUTION WIDTH 15.3 % (11.5-14.5); WHITE BLOOD COUNT 8.8 X10'3 (4.5-11.0)
[2024-05-01 18:20] LABS: ALBUMIN 3.8 G/DL (3.4-5.0); ANION GAP 9 (8-16); BLOOD UREA NITROGEN 11 MG/DL (7-18); BUN/CREATININE RATIO 13.3 (10.0-20.0); CALCIUM 8.2 MG/DL (8.5-10.1); CHLORIDE 107 MMOL/L (99-107); CREATININE 0.83 MG/DL (0.60-1.10); ETHANOL 298 MG/DL (<10); GLUCOSE 106 MG/DL (70-104); POTASSIUM 3.8 MMOL/L (3.5-5.1); SODIUM 143 MMOL/L (135-145); THYROID STIMULATING HORMONE 1.16 ulU/ml (0.34-4.50); TOTAL CARBON DIOXIDE 26.8 MMOL/L (24-32); eCRCL 121 ML/MIN; eGFR > 90 ML/MIN
[2024-05-01] MEDS: chlordiazePOXIDE 25mg capsule PO ONE (19:06)
[2024-05-01 19:32] LABS: BILIRUBIN,URINE NEGATIVE (Neg); CLARITY,URINE CLEAR (Clear); COLOR,URINE YELLOW (Yellow); GLUCOSE, URINE NEGATIVE (Neg); KETONES,URINE NEGATIVE (Neg); LEUKOCYTE ESTERASE ,URINE NEGATIVE (Neg); NITRITES, URINE NEGATIVE (Neg); OCCULT BLOOD,URINE NEGATIVE (Neg); PROTEIN,URINE TRACE mg/dl (Neg)
[2024-05-01 19:38] LABS: UA COLLECTION TYPE URINAL
[2024-05-01 19:39] LABS: MUCUS STRANDS MODERATE /LPF (Neg); SQUAMOUS EPITHELIAL CELL,UR NONE SEEN /LPF (FEW)
[2024-05-01 19:40] LABS: AMORPHOUS URATES 1+; BACTERIA,URINE NONE SEEN /HPF (Neg); RBC,URINE NONE SEEN /HPF (0-2)
[2024-05-01 19:57] LABS: URINE AMPHETAMINE SCREEN NEGATIVE (Neg); URINE BARBITUATE SCREEN NEGATIVE (Neg); URINE BENZODIAZEPINES SCREEN POSITIVE (Neg); URINE CANNABINOID SCREEN NEGATIVE (Neg); URINE COCAINE SCREEN NEGATIVE (Neg); URINE METHADONE SCREEN NEGATIVE (Neg); URINE OPIATE SCREEN NEGATIVE (Neg); URINE PHENCYCLIDINE SCREEN NEGATIVE (Neg)
[2024-05-02] MEDS ORDERED: LISI20TA28 PO (07:43)
[2024-05-02 08:06] VITALS: BP 159/104; PULSE 96; RESP 18
[2024-05-02] MEDS: LORazepam 1 MG tablet PO ONE (08:38)
== END 2024-05-02 10:10 | disposition home or self-care (01) ==
LOC: ER 17:20
DX: R45.851 Suicidal ideations (principal); I10 Essential (primary) hypertension; Z20.822 Contact with and (suspected) exposure to COVID-19
CPT/HCPCS: 36415; 80048; 80305; 80320; 81001; 84443; 85025; 87811; 99284

== ENCOUNTER 2024-05-12 08:37 | Emergency (ER) | payer MEDICAID ==
[~2024-05-12] VITALS: Ht 182.9 cm; Wt 87.2 kg
[~2024-05-12 08:37] MED LIST changes: +LISI20TA28 PO
[2024-05-12 08:45] VITALS: TEMP 98
[2024-05-12 09:27] LABS: BASOPHILS # (AUTO) 0.1 X10'3 (0-0.2); BASOPHILS % (AUTO) 0.8 % (0-1); EOSINOPHILS # (AUTO) 0.2 X10'3 (0-0.9); EOSINOPHILS % (AUTO) 2.7 % (0-6); HEMATOCRIT 39.7 % (42.0-52.0); HEMOGLOBIN 13.3 g/dl (14.0-17.9); LYMPHOCYTES # (AUTO) 2.4 X10'3 (1.1-4.8); LYMPHOCYTES % (AUTO) 34.8 % (21-51); MEAN CORPUSCULAR HEMOGLOBIN 29.4 PG (27.0-31.0); MEAN CORPUSCULAR HGB CONC 33.5 g/dL (33.0-36.5); MEAN CORPUSCULAR VOLUME 87.8 FL (78-98); MONOCYTES # (AUTO) 0.5 X10'3 (0-0.9); MONOCYTES % (AUTO) 7.1 % (2-12); NEUTROPHILS # (AUTO) 3.8 X10'3 (1.8-7.7); NEUTROPHILS % (AUTO) 54.6 % (42-75); PLATELET COUNT 300 X10'3 (140-440); RED BLOOD COUNT 4.52 X10'6 (4.70-6.10); RED CELL DISTRIBUTION WIDTH 15.2 % (11.5-14.5); WHITE BLOOD COUNT 6.9 X10'3 (4.5-11.0)
[2024-05-12 09:52] LABS: ALBUMIN 3.5 G/DL (3.4-5.0); ANION GAP 10 (8-16); BLOOD UREA NITROGEN 11 MG/DL (7-18); BUN/CREATININE RATIO 14.7 (10.0-20.0); CALCIUM 8.3 MG/DL (8.5-10.1); CHLORIDE 106 MMOL/L (99-107); CREATININE 0.75 MG/DL (0.60-1.10); GLUCOSE 118 MG/DL (70-104); POTASSIUM 3.8 MMOL/L (3.5-5.1); SODIUM 143 MMOL/L (135-145); THYROID STIMULATING HORMONE 1.65 ulU/ml (0.34-4.50); TOTAL CARBON DIOXIDE 26.8 MMOL/L (24-32); eCRCL 134 ML/MIN; eGFR > 90 ML/MIN
[2024-05-12 09:54] LABS: ETHANOL 321 MG/DL (<10)
[2024-05-12 10:09] LABS: BILIRUBIN,URINE NEGATIVE (Neg); CLARITY,URINE CLEAR (Clear); COLOR,URINE YELLOW (Yellow); GLUCOSE, URINE NEGATIVE (Neg); KETONES,URINE NEGATIVE (Neg); LEUKOCYTE ESTERASE ,URINE SMALL (Neg); NITRITES, URINE NEGATIVE (Neg); OCCULT BLOOD,URINE NEGATIVE (Neg); PH,URINE 5.5 (4.8-8.0); PROTEIN,URINE NEGATIVE (Neg); UROBILINOGEN,URINE 0.2 E.U/dL (0.2-1.0)
[2024-05-12 10:14] LABS: URINE AMPHETAMINE SCREEN NEGATIVE (Neg); URINE BARBITUATE SCREEN NEGATIVE (Neg); URINE BENZODIAZEPINES SCREEN POSITIVE (Neg); URINE CANNABINOID SCREEN NEGATIVE (Neg); URINE COCAINE SCREEN NEGATIVE (Neg); URINE METHADONE SCREEN NEGATIVE (Neg); URINE OPIATE SCREEN NEGATIVE (Neg); URINE PHENCYCLIDINE SCREEN NEGATIVE (Neg)
[2024-05-12 10:15] LABS: RBC,URINE 0-2 /HPF (0-2); SQUAMOUS EPITHELIAL CELL,UR FEW /LPF (FEW); UA COLLECTION TYPE CLN CATCH MIDSTREAM
[2024-05-12 10:16] LABS: BACTERIA,URINE NONE SEEN /HPF (Neg)
[2024-05-12] MEDS: LORazepam 1 MG tablet PO ONE (15:04)
[2024-05-12] MEDS ORDERED: NALT50TA5 PO (18:54)
[2024-05-12 19:30] VITALS: BP 139/82; PULSE 83; RESP 17; O2SAT 98
== END 2024-05-12 19:33 | disposition home or self-care (01) ==
LOC: ER 08:37
DX: F32.A Depression, unspecified (principal); Z20.822 Contact with and (suspected) exposure to COVID-19; I10 Essential (primary) hypertension; F41.9 Anxiety disorder, unspecified; Z79.899 Other long term (current) drug therapy; Z59.00 Homelessness unspecified
CPT/HCPCS: 36415; 80048; 80305; 80320; 81001; 84443; 85025; 87811; 99284

== ENCOUNTER 2024-05-13 20:24 | Inpatient (IN) | payer MEDICAID ==
[~2024-05-13] VITALS: Ht 182.9 cm; Wt 91.1 kg
[2024-05-13] MEDS: normal saline 1000ml 1,000 ML IV ONE (21:02)
[2024-05-13] MEDS: LORazepam 2 mg/ml vial IV ONE (21:02)
[2024-05-13] MEDS: thiamine 100mg/ml 2ml inj. IV ONE (21:02)
[2024-05-13 21:07] LABS: BASOPHILS # (AUTO) 0.1 X10'3 (0-0.2); BASOPHILS % (AUTO) 0.7 % (0-1); EOSINOPHILS # (AUTO) 0.2 X10'3 (0-0.9); EOSINOPHILS % (AUTO) 2.8 % (0-6); HEMATOCRIT 36.2 % (42.0-52.0); HEMOGLOBIN 12.5 g/dl (14.0-17.9); LYMPHOCYTES # (AUTO) 2.9 X10'3 (1.1-4.8); LYMPHOCYTES % (AUTO) 32.2 % (21-51); MEAN CORPUSCULAR HEMOGLOBIN 29.6 PG (27.0-31.0); MEAN CORPUSCULAR HGB CONC 34.5 g/dL (33.0-36.5); MEAN CORPUSCULAR VOLUME 85.8 FL (78-98); MEAN PLATELET VOLUME 7.2 FL (7.4-10.4); MONOCYTES # (AUTO) 1.3 X10'3 (0-0.9); MONOCYTES % (AUTO) 14.3 % (2-12); NEUTROPHILS # (AUTO) 4.5 X10'3 (1.8-7.7); PLATELET COUNT 278 X10'3 (140-440); RED BLOOD COUNT 4.22 X10'6 (4.70-6.10); RED CELL DISTRIBUTION WIDTH 15.4 % (11.5-14.5); WHITE BLOOD COUNT 8.9 X10'3 (4.5-11.0)
[2024-05-13 21:24] LABS: ALANINE AMINOTRANSFERASE 41 U/L (12-78); ALBUMIN 3.5 G/DL (3.4-5.0); ALBUMIN/GLOBULIN RATIO 0.8 (1.1-1.5); ALKALINE PHOSPHATASE 64 IU/L (46-116); ANION GAP 15 (8-16); ASPARTATE AMINO TRANSFERASE 46 U/L (10-37); BILIRUBIN,TOTAL 0.5 MG/DL (0.1-1.0); BLOOD UREA NITROGEN 12 MG/DL (7-18); BUN/CREATININE RATIO 13.2 (10.0-20.0); CALCIUM 7.8 MG/DL (8.5-10.1); CHLORIDE 101 MMOL/L (99-107); CREATININE 0.91 MG/DL (0.60-1.10); ETHANOL 75 MG/DL (<10); GLUCOSE 104 MG/DL (70-104); MAGNESIUM 1.7 MG/DL (1.5-2.4); POTASSIUM 3.3 MMOL/L (3.5-5.1); SODIUM 140 MMOL/L (135-145); TOTAL CARBON DIOXIDE 24.5 MMOL/L (24-32); TOTAL PROTEIN 7.7 G/DL (6.4-8.2); eCRCL 110 ML/MIN; eGFR 89 ML/MIN
[2024-05-13 21:39] LABS: APTT 26 SECONDS (22-32); PROTHROMBIN TIME 10.5 SECONDS (9.0-12.0)
[2024-05-13] MEDS: phenoBARBITAL sod 130mg/ml inj. IV ONE (21:39)
[2024-05-13] MEDS: potassium Cl 20 mEq SR tablet PO STA (22:35)
[2024-05-13] MEDS ORDERED: mag hydrox/Alum hydrox/simeth 30ml oral suspension PO PRN (23:40)
[2024-05-13] MEDS ORDERED: haloperidol lactate 5mg/ml inj IM PRN (23:40)
[2024-05-13] MEDS ORDERED: magnesium sulf-water 4G/100mL 100 ML IV PRN (23:40)
[2024-05-13] MEDS ORDERED: haloperidol 5mg tablet PO PRN (23:40)
[2024-05-13] MEDS ORDERED: potassium Cl 40MEQ/1/2NS 520ml 520 ML IV PRN (23:40)
[2024-05-13] MEDS ORDERED: magnesium hydroxide 30ml (MOM) UD suspension PO PRN (23:40)
[2024-05-13] MEDS: thiamine 100mg/ml 2ml inj. IV SCH (23:40)
[2024-05-13] MEDS ORDERED: acetaminophen 325mg tablet PO PRN (23:40)
[2024-05-13] MEDS ORDERED: potassium Cl 20 mEq SR tablet PO PRN (23:40)
[2024-05-13] MEDS ORDERED: magnesium Cl slow-release 64mg tablet PO PRN (23:40)
[2024-05-13] MEDS ORDERED: ondansetron/PF 4mg/2ml inj IV PRN (23:40)
[2024-05-13] MEDS ORDERED: magnesium sulf-water 2g/50mL 50 ML IV PRN (23:40)
[2024-05-14] MEDS: dextrose 5%-water 1,000 ML IV SCH (00:29)
[2024-05-14] MEDS: LORazepam 2 mg/ml vial IV PRN (00:51)
[2024-05-14] MEDS: potassium Cl 20 mEq SR tablet PO PRN (02:40)
[2024-05-14 03:12] LABS: BASOPHILS % (AUTO) 0.7 % (0-1); EOSINOPHILS # (AUTO) 0.2 X10'3 (0-0.9); EOSINOPHILS % (AUTO) 2.8 % (0-6); HEMATOCRIT 33.5 % (42.0-52.0); HEMOGLOBIN 11.6 g/dl (14.0-17.9); LYMPHOCYTES # (AUTO) 2.1 X10'3 (1.1-4.8); MEAN CORPUSCULAR HEMOGLOBIN 29.9 PG (27.0-31.0); MEAN CORPUSCULAR HGB CONC 34.5 g/dL (33.0-36.5); MEAN CORPUSCULAR VOLUME 86.5 FL (78-98); MEAN PLATELET VOLUME 7.4 FL (7.4-10.4); MONOCYTES % (AUTO) 13.5 % (2-12); PLATELET COUNT 212 X10'3 (140-440); RED BLOOD COUNT 3.87 X10'6 (4.70-6.10); RED CELL DISTRIBUTION WIDTH 14.8 % (11.5-14.5); WHITE BLOOD COUNT 7.4 X10'3 (4.5-11.0)
[2024-05-14 03:23] LABS: INR 1.1 INR; PROTHROMBIN TIME 11.2 SECONDS (9.0-12.0)
[2024-05-14 03:32] LABS: ALANINE AMINOTRANSFERASE 37 U/L (12-78); ALBUMIN 3.1 G/DL (3.4-5.0); ALBUMIN/GLOBULIN RATIO 0.8 (1.1-1.5); ALKALINE PHOSPHATASE 57 IU/L (46-116); AMYLASE 34 U/L (25-115); ANION GAP 8 (8-16); ASPARTATE AMINO TRANSFERASE 36 U/L (10-37); BILIRUBIN,TOTAL 0.7 MG/DL (0.1-1.0); BLOOD UREA NITROGEN 10 MG/DL (7-18); BUN/CREATININE RATIO 14.3 (10.0-20.0); CALCIUM 8.1 MG/DL (8.5-10.1); CHLORIDE 102 MMOL/L (99-107); GLUCOSE 141 MG/DL (70-104); LIPASE 35 U/L (16-77); MAGNESIUM 1.8 MG/DL (1.5-2.4); PHOSPHORUS 2.6 MG/DL (2.3-4.5); POTASSIUM 3.5 MMOL/L (3.5-5.1); SODIUM 136 MMOL/L (135-145); TOTAL CARBON DIOXIDE 25.9 MMOL/L (24-32); TOTAL PROTEIN 6.9 G/DL (6.4-8.2); eCRCL 143 ML/MIN; eGFR > 90 ML/MIN
[2024-05-14 04:30] VITALS: BP 151/85; PULSE 92; RESP 16; TEMP 97.3; O2SAT 96
[2024-05-14 05:30] VITALS: RESP 18; O2SAT 99
[2024-05-14 06:00] VITALS: BP 131/81; PULSE 90; RESP 18; TEMP 97.7; O2SAT 96
[2024-05-14] MEDS: folic acid 1mg/0.2ml inj IV SCH (08:00)
[2024-05-14] MEDS: multivitamins, therapeutics tablet PO SCH (08:00)
[2024-05-14] MEDS: K and/or MAG REPLACEMENT MC SCH (08:00)
[2024-05-14] MEDS: PARoxetine 20mg tablet PO SCH (08:01)
[2024-05-14] MEDS: lisinopril 20mg tablet PO SCH (08:01)
[2024-05-14] MEDS: docusate sod 100mg capsule PO SCH (08:01)
[2024-05-14 08:15] VITALS: RESP 18; O2SAT 98
[2024-05-14 11:00] VITALS: BP 146/92; PULSE 92; RESP 18; TEMP 97.3; O2SAT 96
[2024-05-14 15:21] LABS: BILIRUBIN,URINE NEGATIVE (Neg); CLARITY,URINE CLEAR (Clear); COLOR,URINE YELLOW (Yellow); GLUCOSE, URINE NEGATIVE (Neg); KETONES,URINE NEGATIVE (Neg); LEUKOCYTE ESTERASE ,URINE NEGATIVE (Neg); NITRITES, URINE NEGATIVE (Neg); OCCULT BLOOD,URINE NEGATIVE (Neg); PH,URINE 7.5 (4.8-8.0); PROTEIN,URINE NEGATIVE (Neg); UROBILINOGEN,URINE 0.2 E.U/dL (0.2-1.0)
[2024-05-14 15:23] LABS: UA COLLECTION TYPE URINAL
[2024-05-14 15:38] LABS: URINE AMPHETAMINE SCREEN NEGATIVE (Neg); URINE BARBITUATE SCREEN POSITIVE (Neg); URINE BENZODIAZEPINES SCREEN POSITIVE (Neg); URINE CANNABINOID SCREEN NEGATIVE (Neg); URINE COCAINE SCREEN NEGATIVE (Neg); URINE METHADONE SCREEN NEGATIVE (Neg); URINE OPIATE SCREEN NEGATIVE (Neg); URINE PHENCYCLIDINE SCREEN NEGATIVE (Neg)
[2024-05-14 16:06] LABS: ALBUMIN 3.3 G/DL (3.4-5.0); ANION GAP 11 (8-16); BLOOD UREA NITROGEN 5 MG/DL (7-18); BUN/CREATININE RATIO 5.8 (10.0-20.0); CALCIUM 8.7 MG/DL (8.5-10.1); CHLORIDE 102 MMOL/L (99-107); CREATININE 0.86 MG/DL (0.60-1.10); GLUCOSE 139 MG/DL (70-104); POTASSIUM 3.7 MMOL/L (3.5-5.1); SODIUM 137 MMOL/L (135-145); TOTAL CARBON DIOXIDE 24.3 MMOL/L (24-32); eCRCL 117 ML/MIN; eGFR > 90 ML/MIN
[2024-05-14] MEDS: normal saline 1000ml 1,000 ML IV SCH (16:09)
[2024-05-14] MEDS ORDERED: enoxaparin 40mg/0.4ml syringe SQ SCH (20:00)
[2024-05-15] MEDS ORDERED: LORazepam 2 mg/ml vial IV PRN (23:40)
[2024-05-15] MEDS ORDERED: LORazepam 1 MG tablet PO PRN (23:40)
[2024-05-17] MEDS ORDERED: thiamine 100mg tablet PO SCH (08:00)
[2024-05-17] MEDS ORDERED: LORazepam 2 mg/ml vial IV PRN (23:40)
[2024-05-17] MEDS ORDERED: LORazepam 1 MG tablet PO PRN (23:40)
[2024-05-18] MEDS ORDERED: folic acid 1mg tablet PO SCH (08:00)
== END 2024-05-14 18:02 | disposition left against medical advice (07) | DRG 58 ==
LOC: ER 20:24 → ED HOLD 22:47 → EDBEDREQ 05-14 03:04 → PCU 3S 05-14 04:30
PROVIDERS: ADMIT Internal Medicine Critical Care Medicine; ATTEND Internal Medicine
DX: R25.1 Tremor, unspecified (principal); F10.231 Alcohol dependence with withdrawal delirium; F41.9 Anxiety disorder, unspecified; I10 Essential (primary) hypertension; Z53.29 Procedure and treatment not carried out because of patient's decision for other reasons; Z59.00 Homelessness unspecified
CPT/HCPCS: 36415; 80048; 80053; 80305; 80320; 81003; 82150; 83690; 83735; 84100; 85025; 85610; 85730; 87081; A6258; A6449; G0378; J2060; J2560; J3411; J3490; J7030; J7042; J7070; J7120

== ENCOUNTER 2024-05-27 08:17 | Emergency (ER) | payer MEDICAID ==
[~2024-05-27] VITALS: Ht 180.3 cm; Wt 59.1 kg
[~2024-05-27 08:17] MED LIST changes: -CHLO25CA10 PO; -HYDR25SU32 RC; -HYDR30CR79 TOP; -NALT50TA5 PO
[2024-05-27 08:57] VITALS: TEMP 98.2
[2024-05-27 09:53] LABS: BASOPHILS # (AUTO) 0.1 X10'3 (0-0.2); BASOPHILS % (AUTO) 0.9 % (0-1); EOSINOPHILS # (AUTO) 0.1 X10'3 (0-0.9); EOSINOPHILS % (AUTO) 1.6 % (0-6); HEMATOCRIT 37.9 % (42.0-52.0); HEMOGLOBIN 12.9 g/dl (14.0-17.9); LYMPHOCYTES # (AUTO) 2.3 X10'3 (1.1-4.8); LYMPHOCYTES % (AUTO) 35.4 % (21-51); MEAN CORPUSCULAR HEMOGLOBIN 29.5 PG (27.0-31.0); MEAN CORPUSCULAR VOLUME 86.6 FL (78-98); MEAN PLATELET VOLUME 7.3 FL (7.4-10.4); MONOCYTES # (AUTO) 0.4 X10'3 (0-0.9); MONOCYTES % (AUTO) 5.8 % (2-12); NEUTROPHILS # (AUTO) 3.6 X10'3 (1.8-7.7); NEUTROPHILS % (AUTO) 56.3 % (42-75); PLATELET COUNT 320 X10'3 (140-440); RED BLOOD COUNT 4.38 X10'6 (4.70-6.10); RED CELL DISTRIBUTION WIDTH 15.2 % (11.5-14.5); WHITE BLOOD COUNT 6.4 X10'3 (4.5-11.0)
[2024-05-27 09:59] LABS: ALANINE AMINOTRANSFERASE 43 U/L (12-78); ALBUMIN 3.6 G/DL (3.4-5.0); ALBUMIN/GLOBULIN RATIO 0.8 (1.1-1.5); ALKALINE PHOSPHATASE 62 IU/L (46-116); ANION GAP 8 (8-16); ASPARTATE AMINO TRANSFERASE 32 U/L (10-37); BILIRUBIN,TOTAL 0.3 MG/DL (0.1-1.0); BLOOD UREA NITROGEN 10 MG/DL (7-18); CALCIUM 8.2 MG/DL (8.5-10.1); CHLORIDE 107 MMOL/L (99-107); CREATININE 0.83 MG/DL (0.60-1.10); GLUCOSE 115 MG/DL (70-104); MAGNESIUM 2.2 MG/DL (1.5-2.4); POTASSIUM 3.6 MMOL/L (3.5-5.1); SODIUM 144 MMOL/L (135-145); eCRCL 92 ML/MIN; eGFR > 90 ML/MIN
[2024-05-27 11:31] VITALS: BP 128/84; PULSE 94; RESP 16; O2SAT 95
[2024-05-27] MEDS ORDERED: chlordiazePOXIDE 25mg capsule PO ONE (11:55)
== END 2024-05-27 12:40 | disposition home or self-care (01) ==
LOC: ER 08:18
DX: F10.239 Alcohol dependence with withdrawal, unspecified (principal); F10.229 Alcohol dependence with intoxication, unspecified; F41.9 Anxiety disorder, unspecified; R07.89 Other chest pain; I10 Essential (primary) hypertension; Z79.899 Other long term (current) drug therapy; Y90.9 Presence of alcohol in blood, level not specified
CPT/HCPCS: 36415; 71045; 80053; 83735; 84100; 84484; 85025; 93005; 99285

== ENCOUNTER 2024-05-27 20:45 | Emergency (ER) | payer MEDICAID ==
[~2024-05-27] VITALS: Ht 180.3 cm; Wt 59.1 kg
[2024-05-27 20:49] VITALS: BP 159/86; PULSE 93; RESP 18; TEMP 98.9; O2SAT 98
== END 2024-05-27 21:48 | disposition home or self-care (01) ==
LOC: ER 20:46
DX: F10.10 Alcohol abuse, uncomplicated (principal); I10 Essential (primary) hypertension; F41.9 Anxiety disorder, unspecified; Z79.899 Other long term (current) drug therapy; Y90.9 Presence of alcohol in blood, level not specified
CPT/HCPCS: 99283

== ENCOUNTER 2024-06-09 17:25 | Emergency (ER) | payer MEDICAID ==
[~2024-06-09] VITALS: Ht 182.9 cm; Wt 41.3 kg
[2024-06-09] MEDS: ondansetron/PF 4mg/2ml inj IV ONE (18:11)
[2024-06-09] MEDS: normal saline 1000ml 1,000 ML IV ONE (18:12)
[2024-06-09] MEDS: ketorolac trometh 15mg/ml vial 15 MG/ML ML IV ONE (18:12)
[2024-06-09 18:26] LABS: BASOPHILS % (AUTO) 0.3 % (0-1); EOSINOPHILS # (AUTO) 0.1 X10'3 (0-0.9); EOSINOPHILS % (AUTO) 1.1 % (0-6); HEMATOCRIT 39.4 % (42.0-52.0); HEMOGLOBIN 13.6 g/dl (14.0-17.9); LYMPHOCYTES # (AUTO) 0.4 X10'3 (1.1-4.8); LYMPHOCYTES % (AUTO) 3.7 % (21-51); MEAN CORPUSCULAR HEMOGLOBIN 29.6 PG (27.0-31.0); MEAN CORPUSCULAR HGB CONC 34.5 g/dL (33.0-36.5); MEAN CORPUSCULAR VOLUME 85.7 FL (78-98); MEAN PLATELET VOLUME 7.4 FL (7.4-10.4); MONOCYTES # (AUTO) 0.8 X10'3 (0-0.9); MONOCYTES % (AUTO) 8.9 % (2-12); NEUTROPHILS # (AUTO) 8.1 X10'3 (1.8-7.7); PLATELET COUNT 219 X10'3 (140-440); RED CELL DISTRIBUTION WIDTH 15.1 % (11.5-14.5); WHITE BLOOD COUNT 9.4 X10'3 (4.5-11.0)
[2024-06-09 18:43] LABS: ALANINE AMINOTRANSFERASE 27 U/L (12-78); ALBUMIN 3.7 G/DL (3.4-5.0); ALBUMIN/GLOBULIN RATIO 0.9 (1.1-1.5); ALKALINE PHOSPHATASE 68 IU/L (46-116); ANION GAP 9 (8-16); ASPARTATE AMINO TRANSFERASE 21 U/L (10-37); BLOOD UREA NITROGEN 15 MG/DL (7-18); BUN/CREATININE RATIO 16.1 (10.0-20.0); CALCIUM 8.6 MG/DL (8.5-10.1); CHLORIDE 98 MMOL/L (99-107); CREATININE 0.93 MG/DL (0.60-1.10); GLUCOSE 136 MG/DL (70-104); SODIUM 137 MMOL/L (135-145); TOTAL CARBON DIOXIDE 30.2 MMOL/L (24-32); TOTAL PROTEIN 7.9 G/DL (6.4-8.2); eCRCL 57 ML/MIN; eGFR 87 ML/MIN
[2024-06-09] MEDS ORDERED: ONDA-245 PO (19:41)
[2024-06-09 20:24] VITALS: BP 117/96; PULSE 117; RESP 16; TEMP 99.1; O2SAT 98
== END 2024-06-09 20:25 | disposition home or self-care (01) ==
LOC: ER 17:25
DX: R11.2 Nausea with vomiting, unspecified (principal); R19.7 Diarrhea, unspecified; I10 Essential (primary) hypertension; F41.9 Anxiety disorder, unspecified; Z79.899 Other long term (current) drug therapy; Z20.822 Contact with and (suspected) exposure to COVID-19
CPT/HCPCS: 36415; 80053; 85025; 87502; 87503; 87811; 96361; 96374; 96375; 99284; J1885; J2405; J7030

== ENCOUNTER 2024-08-03 14:00 | Emergency (ER) | payer MEDICAID ==
[~2024-08-03] VITALS: Ht 182.9 cm; Wt 86.4 kg
[~2024-08-03 14:00] MED LIST changes: +ONDA-245 PO
[2024-08-03 14:22] VITALS: BP 130/85; PULSE 73; RESP 16; TEMP 97.8; O2SAT 100
== END 2024-08-03 14:52 ==
LOC: ER 14:01
DX: Z04.1 Encounter for examination and observation following transport accident (principal); I10 Essential (primary) hypertension; F41.9 Anxiety disorder, unspecified; Z98.890 Other specified postprocedural states; Z59.00 Homelessness unspecified; Z79.899 Other long term (current) drug therapy; V89.2XXA Person injured in unspecified motor-vehicle accident, traffic, initial encounter; Y93.89 Activity, other specified; Y92.89 Other specified places as the place of occurrence of the external cause; Y99.8 Other external cause status
CPT/HCPCS: 99283

== ENCOUNTER 2024-08-03 19:29 | Emergency (ER) | payer MEDICAID ==
[~2024-08-03] VITALS: Ht 182.9 cm; Wt 86.4 kg
[2024-08-03 19:31] VITALS: BP 160/93; PULSE 99; RESP 18; TEMP 97.7; O2SAT 100
[2024-08-03] MEDS ORDERED: LIDOcaine 5% patch TP ONE (20:55)
[2024-08-03] MEDS ORDERED: ketorolac trometh 15mg/ml vial 15 MG/ML ML IM ONE (20:55)
== END 2024-08-03 22:30 | disposition left against medical advice (07) ==
LOC: ER 19:29
DX: M54.59 Other low back pain (principal); M54.2 Cervicalgia; I10 Essential (primary) hypertension; F41.9 Anxiety disorder, unspecified; Z98.890 Other specified postprocedural states; Z79.899 Other long term (current) drug therapy; Z59.00 Homelessness unspecified; V43.52XA Car driver injured in collision with other type car in traffic accident, initial encounter; Y93.89 Activity, other specified; Y92.89 Other specified places as the place of occurrence of the external cause; Y99.8 Other external cause status
CPT/HCPCS: 99281

== ENCOUNTER 2024-10-23 16:50 | Emergency (ER) | payer MEDICAID ==
[~2024-10-23] VITALS: Ht 182.9 cm; Wt 77.3 kg
--- NOTE | 2024-10-23 17:02 | Physician Documentation ---
History of Present Illness ~ Chief Complaint: ETOH Stated Complaint: ALCOHOL WITHDRAW Time Seen by MD: 17:01 Primary Medical Doctor: marisel at [facility] HPI This is a 49-year-old male who presents to the emergency department due to c oncerns for alcohol withdrawal symptoms. History of sobriety, evidently recently again drinking alcohol. He reports some nausea and diarrhea. Tetanus within 5 years?: Yes Medication Reconciliation Allergies: Coded Allergies: No Known Allergies (Unverified , 08/03/24) Scheduled Lisinopril (Lisinopril), 1 TAB PO DAILY, (Reported) Ondansetron 8mg ODT (Ondansetron Odt), 1 TAB PO Q6H Paroxetine HCl (Paroxetine HCl), 1 TAB PO DAILY, (Reported) Scheduled PRN Chlordiazepoxide HCl (Chlordiazepoxide HCl), 2 CAP PO Q8H PRN for alcohol w/d symptoms Past Medical History Past Medical History: Hypertension, Anxiety Past Surgical History: orthopedic surgeries Patient History: Anxiety disorder Aunt FH: alcoholism FATHER Alcohol Use: Abuse Drug Use: none Lives with: Mother Lives In: Homeless Occupation: employed Review of Systems ROS As stated above in the HPI, otherwise all systems are reviewed and negative. Physical Exam Vital Signs: Heart Rate: 108, Respiratory Rate: 17, BP: 148/106, Pulse Oximetry: 95, Weight: 77.270 Oxygen Flow Rate: 0 Physical Exam General: Alert, no apparent distress. HEENT: PERRL, EOMI, no injection, moist mucous membranes. Neck: Full range of motion. Respiratory: Lungs clear, no respiratory distress. Chest: No accessory muscle use. Cardiovascular: Regular rate and rhythm, no murmurs. Gastrointestinal: Soft, nontender, nondistended. Bowels sounds present. Extremities: Normal range of motion, no deformity. Neurologic: Oriented x4. Psychiatric: Normal mood and affect. Skin: Normal color, warm and dry. No edema, no ecchymosis. Progress Results/Orders Results/Orders Orders - SYLVIA LI FIELD SERVICES DIRECTOR Normal Saline 1000ml (Sodium Chloride 10 (10/23/24 17:35) * Iv Access / Saline Lock * (10/23/24 17:35) Completed Orders - SYLVIA LI FIELD SERVICES DIRECTOR CMP (10/23/24 17:04) Cbc/Diff (10/23/24 17:04) Ethanol (5/11/25 17:04) Lorazepam Tablet (Ativan Tablet) (10/23/24 17:05) Ondansetron Inj. (Zofran 4mg/2ml Vial) (10/23/24 17:35) Medications Received in ER Medications (Trade) Dose Ordered Sig/Alix Route PRN Reason Start Time Stop Time Status Last Admin Dose Admin (Ativan tablet) 1 mg ONCE ONCE PO 10/23/24 17:05 10/23/24 17:06 DC 10/23/24 17:14 1 MG Sodium Chloride 1,000 ml @ 1,000 mls/hr ONCE ONCE IV 10/23/24 17:35 10/23/24 18:34 10/23/24 17:53 1,000 MLS/HR (Zofran 4mg/2ml vial) 4 mg ONCE ONCE IV 10/23/24 17:35 10/23/24 17:37 DC 10/23/24 17:53 4 MG Vital Signs 10/23/24 16:56 Pulse 108 Resp 17 B/P (MAP) 148/106 Pulse Ox 95 O2 Flow Rate 0 Laboratory Tests Test 10/23/24 17:11 White Blood Count 9.1 Red Blood Count 4.28 L Hemoglobin 11.1 L Hematocrit 33.9 L Mean Corpuscular Volume 79.3 Mean Corpuscular Hemoglobin 25.9 L Mean Corpuscular Hemoglobin Concent 32.7 L Red Cell Distribution Width 16.5 H Platelet Count 411 Mean Platelet Volume 6.8 L Neutrophils (%) (Auto) 74.7 Lymphocytes (%) (Auto) 20.4 L Monocytes (%) (Auto) 4.2 Eosinophils (%) (Auto) 0.3 Basophils (%) (Auto) 0.4 Neutrophils # (Auto) 6.8 Lymphocytes # (Auto) 1.9 Monocytes # (Auto) 0.4 Eosinophils # (Auto) 0.0 Basophils # (Auto) 0.0 CBC Comment Sodium Level 145 Potassium Level 3.9 Chloride Level 106 Carbon Dioxide Level 18.5 L Anion Gap 21 H Blood Urea Nitrogen 12 Creatinine 0.91 Estimated GFR/1.73 m2 89 BUN/Creatinine Ratio 13.2 Glucose Level 190 H Calcium Level 8.3 L Total Bilirubin 0.3 Aspartate Amino Transf (AST/SGOT) 30 Alanine Aminotransferase (ALT/SGPT) 26 Alkaline Phosphatase 71 Total Protein 7.7 Albumin 3.8 Globulin 3.9 Albumin/Globulin Ratio 1.0 L Chemistry Comments Ethyl Alcohol Level 230 H Medical Decision Making Differential Dx:Considerations: Intoxication - ETOH, Intoxication - other drug, Sub. Abuse -continuous, Sub. Abuse-intermittent, Skull fracture, Fracture - other bone, Personality disorder, Closed head injury, Cervical spine injury, Abrasion, Confusion, Hematoma, Laceration, Foreign body, Dehydration, Encephalopathy, Hepatitis, Pancreatitis, Thiamine deficiency Additional Comment 49-year-old male who presents after reported period of sobriety having resumed alcohol intake. He was found to have evidence of mild dehydration. He was given a L of normal saline as an infusion. He was given medication for nausea. He will be discharged home with Librium to use to prevent alcohol withdrawal symptoms. He is instructed not to resume alcohol intake. He should follow up with the primary care provider referral to substance use navigator sent. Departure Time of Disposition: 18:17 Disposition: 01 HOME / SELF CARE / HOMELESS Impression: Primary Impression: Alcohol abuse Condition: Stable Discharge Instructions: Alcohol Intoxication Additional Instructions: Use the prescribed librium to avoid use of alcohol withdrawal symptoms. Take [id number] B12, thiamine, and folic acid. Drink plenty of fluids. use ondansetron as needed for nausea. Return if worse. Referral to substance use navigator sent. Referrals: NO PRIMARY CARE PROVIDER (PCP) Prescriptions Chlordiazepoxide HCl (Chlordiazepoxide HCl) 25 Mg Capsule 2 CAP PO Q8H PRN for alcohol w/d symptoms for 3 Days, #12 CAP 0 Refills Prov: SYLVIA LI NP 10/23/24 Education Educated: Patient Educated regarding: diagnosis, treatment, prognosis, need for follow up Signature Scribe Signature: no scribe Attestation: The note accurately reflects work and decisions made by me.Sylvia Li - RONNIE 10/23/24 18:08 SYLVIA LI NP October 23, 2024 17:02
[2024-10-23] MEDS: LORazepam 1 MG tablet PO ONE (17:14)
[2024-10-23 17:18] LABS: BASOPHILS % (AUTO) 0.4 % (0-1); EOSINOPHILS % (AUTO) 0.3 % (0-6); HEMATOCRIT 33.9 % (42.0-52.0); HEMOGLOBIN 11.1 g/dl (14.0-17.9); LYMPHOCYTES # (AUTO) 1.9 X10'3 (1.1-4.8); LYMPHOCYTES % (AUTO) 20.4 % (21-51); MEAN CORPUSCULAR HEMOGLOBIN 25.9 PG (27.0-31.0); MEAN CORPUSCULAR HGB CONC 32.7 g/dL (33.0-36.5); MEAN CORPUSCULAR VOLUME 79.3 FL (78-98); MEAN PLATELET VOLUME 6.8 FL (7.4-10.4); MONOCYTES # (AUTO) 0.4 X10'3 (0-0.9); MONOCYTES % (AUTO) 4.2 % (2-12); NEUTROPHILS # (AUTO) 6.8 X10'3 (1.8-7.7); NEUTROPHILS % (AUTO) 74.7 % (42-75); PLATELET COUNT 411 X10'3 (140-440); RED BLOOD COUNT 4.28 X10'6 (4.70-6.10); RED CELL DISTRIBUTION WIDTH 16.5 % (11.5-14.5); WHITE BLOOD COUNT 9.1 X10'3 (4.5-11.0)
[2024-10-23 17:31] LABS: ALANINE AMINOTRANSFERASE 26 U/L (12-78); ALBUMIN 3.8 G/DL (3.4-5.0); ALKALINE PHOSPHATASE 71 IU/L (46-116); ANION GAP 21 (8-16); ASPARTATE AMINO TRANSFERASE 30 U/L (10-37); BILIRUBIN,TOTAL 0.3 MG/DL (0.1-1.0); BLOOD UREA NITROGEN 12 MG/DL (7-18); BUN/CREATININE RATIO 13.2 (10.0-20.0); CALCIUM 8.3 MG/DL (8.5-10.1); CHLORIDE 106 MMOL/L (99-107); CREATININE 0.91 MG/DL (0.60-1.10); ETHANOL 230 MG/DL (<10); GLUCOSE 190 MG/DL (70-104); POTASSIUM 3.9 MMOL/L (3.5-5.1); SODIUM 145 MMOL/L (135-145); TOTAL CARBON DIOXIDE 18.5 MMOL/L (24-32); TOTAL PROTEIN 7.7 G/DL (6.4-8.2); eCRCL 109 ML/MIN; eGFR 89 ML/MIN
[2024-10-23] MEDS: normal saline 1000ml 1,000 ML IV ONE (17:53)
[2024-10-23] MEDS: ondansetron/PF 4mg/2ml inj IV ONE (17:53)
[2024-10-23] MEDS ORDERED: CHLO25CA10 PO ×2 (18:19→18:20)
[2024-10-23 19:01] VITALS: BP 124/72; PULSE 78; RESP 14; TEMP 97.3; O2SAT 98
== END 2024-10-23 19:10 | disposition home or self-care (01) ==
LOC: ER 16:51
DX: F10.139 Alcohol abuse with withdrawal, unspecified (principal); F41.9 Anxiety disorder, unspecified; I10 Essential (primary) hypertension; Y90.9 Presence of alcohol in blood, level not specified
CPT/HCPCS: 36415; 80053; 80320; 85025; 96361; 96374; 99283; J2405; J7030

== ENCOUNTER 2024-11-07 02:59 | Emergency (ER) | payer MEDICAID ==
[~2024-11-07] VITALS: Ht 182.9 cm; Wt 97.1 kg
[~2024-11-07 02:59] MED LIST changes: +CHLO25CA10 PO
--- NOTE | 2024-11-07 03:11 | ELECTROCARDIOGRAPH REPORT ---
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
--- NOTE | 2024-11-07 03:18 | Physician Documentation ---
History of Present Illness ~ Chief Complaint: Chest Pain Stated Complaint: HIGH BP Time Seen by MD: 03:17 Primary Medical Doctor: marisel at [facility] Mode of Arrival: EMS HPI 49-year-old male, history of hypertension and alcohol abuse who presents with abdominal pain, nausea and chest tightness. He tells me that he woke up during the night, and states that he was feeling extremely nauseous. He states that he started to have chest tightness that is located in his entire central chest. He reports some generalized abdominal discomfort. He reports significant acid reflux including burning up into his throat. He tells me he has been trying to taper down off alcohol use. He is not using medications for this. He is on blood pressure medications. He denies any fevers or infectious symptoms. No congestion or cough. No shortness of breath. No diarrhea or vomiting. Medication Reconciliation Allergies: Coded Allergies: No Known Allergies (Unverified , 11/07/24) Scheduled Lisinopril (Lisinopril), 1 TAB PO DAILY, (Reported) Ondansetron 8mg ODT (Ondansetron Odt), 1 TAB PO Q6H Paroxetine HCl (Paroxetine HCl), 1 TAB PO DAILY, (Reported) Scheduled PRN Chlordiazepoxide HCl (Chlordiazepoxide HCl), 2 CAP PO Q8H PRN for alcohol w/d symptoms Past Medical History Past Medical History: Hypertension, Anxiety Past Surgical History: orthopedic surgeries Patient History: Anxiety disorder Aunt FH: alcoholism FATHER Alcohol Use: Abuse Drug Use: none Lives with: Mother Lives In: Homeless Occupation: employed Review of Systems Constitutional: Denies: fever Cardiovascular: Reports: chest pain Gastrointestinal: Reports: abdominal pain, nausea; Denies: vomiting, diarrhea Physical Exam Vital Signs: Temperature: 98.1, Source: Oral, Heart Rate: 83, Respiratory Rate: 12, BP: 153/92, Pulse Oximetry: 100, Weight: 97.100 Oxygen Flow Rate: 0 Physical Exam General: This is a pleasant and mildly anxious appearing middle-aged man HEENT: Atraumatic, oropharynx is moist, mild tongue fasciculations Heart: Regular rate and rhythm, normal-appearing peripheral perfusion, normal right radial pulse Lungs: Clear breath sounds bilateral, normal work of breathing, normal oxygen saturation on room air Abdomen: Soft, nondistended, mild discomfort on palpation in the central abdomen, no rebound or guarding Neuro: Alert and oriented Psychiatric: Mildly anxious. He does have a mild resting tremor in his extremities Progress Results/Orders Results/Orders Orders - DAVID DICKENS MD Monitor (11/07/24 03:07) Saline Lock (11/07/24 03:07) Oxygen (11/07/24 03:07) Completed Orders - DAVID DICKENS MD Cbc/Diff (11/07/24 03:07) PBNP (11/07/24 03:07) Electrocardiogram (11/07/24 03:07) CMP (11/07/24 03:07) Hs Troponin I W Calculations (11/07/24 03:07) Hs Troponin I W Calculations (11/07/24 05:07) Hs Troponin I W Calculations (11/07/24 06:07) Lorazepam Inj (Ativan Inj) (11/07/24 03:30) Ondansetron Inj. (Zofran 4mg/2ml Vial) (11/07/24 03:30) Pantoprazole 40mg Iv (Protonix 40mg Iv) (11/07/24 03:30) Mag & Alum Hydrox/Simeth Susp (Maalox Or (11/07/24 03:30) Lipase (11/07/24 03:25) Medications Received in ER Medications (Trade) Dose Ordered Sig/Alix Route PRN Reason Start Time Stop Time Status Last Admin Dose Admin (Ativan inj) 1 mg ONCE ONCE IV 11/07/24 03:30 11/07/24 03:31 DC 11/07/24 03:55 1 MG (Zofran 4mg/2ml vial) 4 mg ONCE ONCE IV 11/07/24 03:30 11/07/24 03:31 DC 11/07/24 03:55 4 MG (Protonix 40mg IV) 40 mg ONCE ONCE IV 11/07/24 03:30 11/07/24 03:31 DC 11/07/24 03:55 40 MG (Maalox oral suspension) 30 ml ONCE ONCE PO 11/07/24 03:30 11/07/24 03:31 DC 11/07/24 03:55 30 ML Vital Signs 11/07/24 11/07/24 11/07/24 11/07/24 03:01 03:10 03:10 06:00 Temp 98.1 Pulse 85 83 68 Resp 14 17 12 16 B/P (MAP) 159/99 153/92 (112) 157/94 (115) Pulse Ox 98 100 99 O2 Flow Rate 0 Laboratory Tests Test 11/07/24 03:25 11/07/24 05:00 11/07/24 05:59 White Blood Count 6.9 Red Blood Count 3.41 L Hemoglobin 8.8 L Hematocrit 26.7 L Mean Corpuscular Volume 78.1 Mean Corpuscular Hemoglobin 25.7 L Mean Corpuscular Hemoglobin Concent 32.9 L Red Cell Distribution Width 16.4 H Platelet Count 239 Mean Platelet Volume 6.8 L Neutrophils (%) (Auto) 58.4 Lymphocytes (%) (Auto) 27.7 Monocytes (%) (Auto) 8.6 Eosinophils (%) (Auto) 4.1 Basophils (%) (Auto) 1.2 H Neutrophils # (Auto) 4.1 Lymphocytes # (Auto) 1.9 Monocytes # (Auto) 0.6 Eosinophils # (Auto) 0.3 Basophils # (Auto) 0.1 CBC Comment Sodium Level 144 Potassium Level 3.3 L Chloride Level 106 Carbon Dioxide Level 29.6 Anion Gap 8 Blood Urea Nitrogen 13 Creatinine 1.00 Estimated GFR/1.73 m2 80 BUN/Creatinine Ratio 13.0 Glucose Level 111 H Calcium Level 9.1 Total Bilirubin 0.2 Aspartate Amino Transf (AST/SGOT) 17 Alanine Aminotransferase (ALT/SGPT) 23 Alkaline Phosphatase 65 Troponin I High Sensitivity 5 6 6 Pro-B-Type Natriuretic Peptide 33 Total Protein 7.4 Albumin 3.4 Globulin 4.0 Albumin/Globulin Ratio 0.9 L Lipase 75 Chemistry Comments Troponin I High Sens Percent Delta 20 0 Troponin I Hi Sens Absolute Change 1 0 EKG/XRAY/CT/US/VASC/MRI EKG : Additional Comment I personally interpreted the EKG and this shows: Sinus rhythm, rate 85, QTC 472, no STEMI or acute ischemic changes Medical Decision Making Differential Dx:Considerations: Include: angina, aortic dissection, chest wall pain, CHF, costochondritis, myocardial infarction, pulmonary embolus Additional Information Differential includes anxiety, hypertensive emergency, alcohol withdrawal Assessment 49-year-old male, history of hypertension who presents with abdominal pain, nausea and chest tightness. Per my history and exam, this does not appear consistent with a cardiac process. EKG without ischemic changes and troponin is normal, and I doubt ACS. His symptoms seem primarily related to alcohol withdrawal and gastritis. He was given symptomatic treatment with good improvement. His laboratory testing is otherwise unremarkable. On re- evaluation he was feeling much better. I recommended omeprazole for his gastritis. I offered to prescribe Librium to help him safely detox from alcohol but he declined. He declined any other treatments or medications at this time. He will be discharged home with a plan to follow up with his primary doctor tomorrow. Departure Time of Disposition: 05:59 Disposition: 01 HOME / SELF CARE / HOMELESS Impression: Primary Impression: Alcohol withdrawal Additional Impression: Gastritis Condition: Improved Discharge Instructions: Alcohol Withdrawal Syndrome, Gastritis, Adult Referrals: NO PRIMARY CARE PROVIDER (PCP) Education Educated: Patient Educated regarding: diagnosis, treatment, need for follow up Signature Scribe Signature: alee Attestation: DAVID Crespo MD November 07, 2024 03:18
[2024-11-07 03:39] LABS: BASOPHILS # (AUTO) 0.1 X10'3 (0-0.2); BASOPHILS % (AUTO) 1.2 % (0-1); EOSINOPHILS # (AUTO) 0.3 X10'3 (0-0.9); EOSINOPHILS % (AUTO) 4.1 % (0-6); HEMATOCRIT 26.7 % (42.0-52.0); HEMOGLOBIN 8.8 g/dl (14.0-17.9); LYMPHOCYTES # (AUTO) 1.9 X10'3 (1.1-4.8); LYMPHOCYTES % (AUTO) 27.7 % (21-51); MEAN CORPUSCULAR HEMOGLOBIN 25.7 PG (27.0-31.0); MEAN CORPUSCULAR HGB CONC 32.9 g/dL (33.0-36.5); MEAN CORPUSCULAR VOLUME 78.1 FL (78-98); MEAN PLATELET VOLUME 6.8 FL (7.4-10.4); MONOCYTES # (AUTO) 0.6 X10'3 (0-0.9); MONOCYTES % (AUTO) 8.6 % (2-12); NEUTROPHILS # (AUTO) 4.1 X10'3 (1.8-7.7); NEUTROPHILS % (AUTO) 58.4 % (42-75); PLATELET COUNT 239 X10'3 (140-440); RED BLOOD COUNT 3.41 X10'6 (4.70-6.10); RED CELL DISTRIBUTION WIDTH 16.4 % (11.5-14.5); WHITE BLOOD COUNT 6.9 X10'3 (4.5-11.0)
[2024-11-07 03:54] LABS: ALANINE AMINOTRANSFERASE 23 U/L (12-78); ALBUMIN 3.4 G/DL (3.4-5.0); ALBUMIN/GLOBULIN RATIO 0.9 (1.1-1.5); ALKALINE PHOSPHATASE 65 IU/L (46-116); ANION GAP 8 (8-16); ASPARTATE AMINO TRANSFERASE 17 U/L (10-37); BILIRUBIN,TOTAL 0.2 MG/DL (0.1-1.0); BLOOD UREA NITROGEN 13 MG/DL (7-18); CALCIUM 9.1 MG/DL (8.5-10.1); CHLORIDE 106 MMOL/L (99-107); GLUCOSE 111 MG/DL (70-104); POTASSIUM 3.3 MMOL/L (3.5-5.1); SODIUM 144 MMOL/L (135-145); TOTAL CARBON DIOXIDE 29.6 MMOL/L (24-32); TOTAL PROTEIN 7.4 G/DL (6.4-8.2); eCRCL 99 ML/MIN; eGFR 80 ML/MIN
[2024-11-07] MEDS: pantoprazole 40 MG vial IV ONE (03:55)
[2024-11-07] MEDS: mag hydrox/Alum hydrox/simeth 30ml oral suspension PO ONE (03:55)
[2024-11-07] MEDS: LORazepam 2 mg/ml vial IV ONE (03:55)
[2024-11-07] MEDS: ondansetron/PF 4mg/2ml inj IV ONE (03:55)
[2024-11-07 04:00] LABS: PRO BRAIN NATRIURETIC PEPTIDE 33 PG/ML (0-125)
[2024-11-07 04:49] LABS: LIPASE 75 U/L (16-77)
[2024-11-07 06:00] VITALS: PULSE 68
[2024-11-07 06:36] VITALS: BP 151/89; RESP 18; TEMP 98.1; O2SAT 99
== END 2024-11-07 06:38 | disposition home or self-care (01) ==
LOC: ER 03:00
DX: F10.129 Alcohol abuse with intoxication, unspecified (principal); K29.70 Gastritis, unspecified, without bleeding; R07.89 Other chest pain; K21.9 Gastro-esophageal reflux disease without esophagitis; I10 Essential (primary) hypertension; F41.9 Anxiety disorder, unspecified; Y90.9 Presence of alcohol in blood, level not specified
CPT/HCPCS: 36415; 80053; 83690; 83880; 84484; 85025; 93005; 96374; 96375; 99284; J2060; J2405; J2470

== ENCOUNTER 2024-11-23 09:54 | Emergency (ER) | payer MEDICAID ==
[~2024-11-23] VITALS: Ht 182.9 cm; Wt 87.7 kg
--- NOTE | 2024-11-23 10:19 | Physician Documentation ---
History of Present Illness ~ Chief Complaint: Mental Health Eval Stated Complaint: DETOXING Time Seen by MD: 10:17 Primary Medical Doctor: marisel at [facility] HPI Patient is seen today with complaints of alcohol abuse and suicidal ideation. Patient states he is currently living in his mom's house with her and states he has been laying in bed for the last four days and has not really eaten or drank anything other than alcohol. Patient states he does have withdrawal symptoms when he stops drinking. Patient states he has not had a drink of alcohol since 4:00 a.m. this morning. Patient denies any chest pain or shortness of breath or abdominal pain or nausea, vomiting, diarrhea. Patient has no other concern or complaint at this time. Medication Reconciliation Allergies: Coded Allergies: No Known Allergies (Unverified , 11/23/24) Scheduled Buspirone Hcl* (Buspar*), 1 TAB PO BID, (Reported) Losartan Potassium (Losartan Potassium), 1 TAB PO DAILY, (Reported) Paroxetine HCl (Paroxetine HCl), 1 TAB PO DAILY, (Reported) Discontinued Medications Chlordiazepoxide HCl (Chlordiazepoxide HCl), 2 CAP PO Q8H PRN for alcohol w/d symptoms Discontinued Reason: patient no longer taking Lisinopril (Lisinopril), 1 TAB PO DAILY, (Reported) Discontinued Reason: patient no longer taking Ondansetron 8mg ODT (Ondansetron Odt), 1 TAB PO Q6H Discontinued Reason: patient no longer taking Past Medical History Past Medical History: Hypertension, Anxiety Past Surgical History: orthopedic surgeries Patient History: Anxiety disorder Aunt FH: alcoholism FATHER Alcohol Use: Abuse Drug Use: none Lives with: Mother Lives In: Homeless Occupation: employed Review of Systems All Other Systems at this time: Reviewed and Negative Constitutional: Denies: chills, fever, weakness Eyes: Denies: pain, blurred vision ENT: Denies: ear pain, nose pain, throat pain, mouth pain Respiratory: Denies: cough, shortness of breath Cardiovascular: Denies: chest pain, palpitations Gastrointestinal: Denies: abdominal pain, nausea, vomiting Genitourinary: Denies: burning, dysuria Male Genitalia: Denies: penile discharge, testicular pain Neurological: Denies: headache, dizziness Musculoskeletal: Denies: pain, swelling Integumentary: Denies: rash, lesions Allergic/Immunologic: Denies: hives, itching Hematologic/Lymphatic: Denies: no symptoms reported Psychiatric: Denies: depression, anxiety Physical Exam Vital Signs: RN Vital Signs have been reviewed: Yes, Temperature: 97.9, Source: Temporal, Heart Rate: 116, Respiratory Rate: 18, BP: 176/97, Pulse Oximetry: 96, Weight: 87.700 Physical Exam General: Awake and Alert, no acute distress. HEENT: Conjunctiva pink, Sclera clear, Mucus Membranes moist. Neck: Supple without masses and tenderness. Resp: Unlabored. Lungs clear to auscultation bilaterally. Heart: Regular Rate and rhythm, normal S1 and S2 without murmur, rub or gallop. Abdomen: Soft and non tender no organomegaly Extremities: No cyanosis,clubbing or edema. Skin: Warm and Dry. Progress Progress Note Labs independently interpreted myself shows no acute abnormality Results/Orders Reviewed/noted all lab results: Yes Results/Orders Completed Orders - JEAN-PIERRE MEREDITH MD Diazepam Tablet (Valium Tablet) (11/23/24 12:00) Chlordiazepoxide Capsule (Librium Capsul (11/23/24 15:25) Medications Received in ER Medications (Trade) Dose Ordered Sig/Alix Route PRN Reason Start Time Stop Time Status Last Admin Dose Admin (Valium tablet) 5 mg ONCE ONCE PO 11/23/24 12:00 11/23/24 12:01 DC 11/23/24 12:47 5 MG (Librium capsule) 50 mg ONCE ONCE PO 11/23/24 15:25 11/23/24 15:28 DC 11/23/24 15:32 50 MG Vital Signs 11/23/24 11/23/24 11/23/24 10:02 12:48 18:00 Temp 97.9 97.9 Pulse 116 79 Resp 18 14 B/P (MAP) 176/97 169/89 (115) Pulse Ox 96 98 Laboratory Tests Test 11/23/24 10:18 11/23/24 10:32 11/23/24 12:50 White Blood Count 10.6 Red Blood Count 4.50 L Hemoglobin 11.5 L Hematocrit 35.4 L Mean Corpuscular Volume 78.6 Mean Corpuscular Hemoglobin 25.6 L Mean Corpuscular Hemoglobin Concent 32.6 L Red Cell Distribution Width 16.4 H Platelet Count 538 H Mean Platelet Volume 7.0 L Neutrophils (%) (Auto) 64.6 Lymphocytes (%) (Auto) 27.9 Monocytes (%) (Auto) 4.8 Eosinophils (%) (Auto) 1.6 Basophils (%) (Auto) 1.1 H Neutrophils # (Auto) 6.9 Lymphocytes # (Auto) 3.0 Monocytes # (Auto) 0.5 Eosinophils # (Auto) 0.2 Basophils # (Auto) 0.1 CBC Comment Sodium Level 145 Potassium Level 3.7 Chloride Level 104 Carbon Dioxide Level 20.8 L Anion Gap 20 H Blood Urea Nitrogen 16 Creatinine 1.09 Estimated GFR/1.73 m2 72 BUN/Creatinine Ratio 14.7 Glucose Level 88 Calcium Level 9.5 Total Bilirubin 0.5 Aspartate Amino Transf (AST/SGOT) 44 H Alanine Aminotransferase (ALT/SGPT) 40 Alkaline Phosphatase 76 Total Protein 9.3 H Albumin 4.4 Globulin 4.9 H Albumin/Globulin Ratio 0.9 L Thyroid Stimulating Hormone (TSH) 0.34 Chemistry Comments Ethyl Alcohol Level 152 H SARS-CoV-2 Antigen (Rapid) Negative Urine Specimen Description Non-specified Urine Color Yellow Urine Clarity Clear Urine pH 6.0 Urine Specific [place] >=1.030 Urine Protein 100 H Urine Glucose (UA) Negative Urine Ketones 40 H Urine Occult Blood Trace-intact Urine Nitrite Negative Urine Bilirubin Negative Urine Urobilinogen 0.2 Urine Leukocyte Esterase Negative Urine RBC 0-2 Urine WBC 5-10 H Urine Squamous Epithelial Cells Few Urine Bacteria Few Urine Mucus Few Volume Urine Centrifuged 10 ml Urine Comment Urine Opiates Screen Negative Urine Methadone Screen Negative Urine Fentanyl Screen Negative Urine Barbiturates Screen Negative Urine Phencyclidine Screen Negative Urine Amphetamines Screen Negative Urine Benzodiazepines Screen Negative Urine Cocaine Screen Negative Urine Cannabinoids Screen Positive Drug Screen Comment Medical Decision Making Findings Patient is seen today with complaints of alcohol abuse and suicidal ideation. Patient states he is currently living in his mom's house with her and states he has been laying in bed for the last four days and has not really eaten or drank anything other than alcohol. Patient states he does have withdrawal symptoms when he stops drinking. Patient states he has not had a drink of alcohol since 4:00 a.m. this morning. Patient denies any chest pain or shortness of breath or abdominal pain or nausea, vomiting, diarrhea. Patient has no other concern or complaint at this time. Departure Disposition: HOME / SELF CARE / HOMELESS Impression: Primary Impression: Alcohol withdrawal Qualified Codes: F10.930 - Alcohol use, unspecified with withdrawal, uncomplicated Additional Impression: Alcohol abuse Additional Instructions: Please consider alcohol cessation. Follow up with your primary care physician and return to the emergency department if you have any suicidal thoughts Referrals: NO PRIMARY CARE PROVIDER (PCP) Signature Scribe Signature: na Attestation: BALDEMAR Ernandez Nov 23, 2024 10:19 JEAN-PIERRE MEREDITH MD Nov 23, 2024 13:22
[2024-11-23] MEDS ORDERED: BUSP5TAB3 PO (10:37)
[2024-11-23] MEDS ORDERED: LOSA25TA41 PO (10:37)
[2024-11-23 10:50] LABS: BASOPHILS # (AUTO) 0.1 X10'3 (0-0.2); BASOPHILS % (AUTO) 1.1 % (0-1); EOSINOPHILS # (AUTO) 0.2 X10'3 (0-0.9); EOSINOPHILS % (AUTO) 1.6 % (0-6); HEMATOCRIT 35.4 % (42.0-52.0); HEMOGLOBIN 11.5 g/dl (14.0-17.9); LYMPHOCYTES % (AUTO) 27.9 % (21-51); MEAN CORPUSCULAR HEMOGLOBIN 25.6 PG (27.0-31.0); MEAN CORPUSCULAR HGB CONC 32.6 g/dL (33.0-36.5); MEAN CORPUSCULAR VOLUME 78.6 FL (78-98); MONOCYTES # (AUTO) 0.5 X10'3 (0-0.9); MONOCYTES % (AUTO) 4.8 % (2-12); NEUTROPHILS # (AUTO) 6.9 X10'3 (1.8-7.7); NEUTROPHILS % (AUTO) 64.6 % (42-75); PLATELET COUNT 538 X10'3 (140-440); RED CELL DISTRIBUTION WIDTH 16.4 % (11.5-14.5); WHITE BLOOD COUNT 10.6 X10'3 (4.5-11.0)
[2024-11-23 11:07] LABS: ALBUMIN 4.4 G/DL (3.4-5.0); ANION GAP 20 (8-16); BLOOD UREA NITROGEN 16 MG/DL (7-18); BUN/CREATININE RATIO 14.7 (10.0-20.0); CALCIUM 9.5 MG/DL (8.5-10.1); CHLORIDE 104 MMOL/L (99-107); CREATININE 1.09 MG/DL (0.60-1.10); ETHANOL 152 MG/DL (<10); GLUCOSE 88 MG/DL (70-104); POTASSIUM 3.7 MMOL/L (3.5-5.1); SODIUM 145 MMOL/L (135-145); THYROID STIMULATING HORMONE 0.34 ulU/ml (0.34-4.50); TOTAL CARBON DIOXIDE 20.8 MMOL/L (24-32); eCRCL 91 ML/MIN; eGFR 72 ML/MIN
[2024-11-23] MEDS: diazepam 5mg tablet PO ONE (12:47)
[2024-11-23 12:48] VITALS: BP 169/89; PULSE 79; RESP 14; O2SAT 98
[2024-11-23 13:48] LABS: BILIRUBIN,URINE NEGATIVE (Neg); CLARITY,URINE CLEAR (Clear); COLOR,URINE YELLOW (Yellow); GLUCOSE, URINE NEGATIVE (Neg); KETONES,URINE 40 mg/dl (Neg); LEUKOCYTE ESTERASE ,URINE NEGATIVE (Neg); NITRITES, URINE NEGATIVE (Neg); OCCULT BLOOD,URINE TRACE-INTACT (Neg); PROTEIN,URINE 100 mg/dl (Neg); UROBILINOGEN,URINE 0.2 E.U/dL (0.2-1.0)
[2024-11-23 13:49] LABS: ALANINE AMINOTRANSFERASE 40 U/L (12-78); ALBUMIN/GLOBULIN RATIO 0.9 (1.1-1.5); ALKALINE PHOSPHATASE 76 IU/L (46-116); ASPARTATE AMINO TRANSFERASE 44 U/L (10-37); BILIRUBIN,TOTAL 0.5 MG/DL (0.1-1.0); TOTAL PROTEIN 9.3 G/DL (6.4-8.2)
[2024-11-23 14:10] LABS: UA COLLECTION TYPE NON-SPECIFIED
[2024-11-23 14:12] LABS: URINE AMPHETAMINE SCREEN NEGATIVE (Neg); URINE BARBITUATE SCREEN NEGATIVE (Neg); URINE BENZODIAZEPINES SCREEN NEGATIVE (Neg); URINE CANNABINOID SCREEN POSITIVE (Neg); URINE COCAINE SCREEN NEGATIVE (Neg); URINE METHADONE SCREEN NEGATIVE (Neg); URINE OPIATE SCREEN NEGATIVE (Neg); URINE PHENCYCLIDINE SCREEN NEGATIVE (Neg)
[2024-11-23 14:16] LABS: BACTERIA,URINE FEW /HPF (Neg); MUCUS STRANDS FEW /LPF (Neg); RBC,URINE 0-2 /HPF (0-2); SQUAMOUS EPITHELIAL CELL,UR FEW /LPF (FEW)
[2024-11-23] MEDS: chlordiazePOXIDE 25mg capsule PO ONE (15:32)
[2024-11-23 18:00] VITALS: TEMP 97.9
== END 2024-11-23 18:10 | disposition home or self-care (01) ==
LOC: ER 09:54
DX: F10.239 Alcohol dependence with withdrawal, unspecified (principal); F41.9 Anxiety disorder, unspecified; I10 Essential (primary) hypertension; Z79.899 Other long term (current) drug therapy; Z59.00 Homelessness unspecified; Z20.822 Contact with and (suspected) exposure to COVID-19; Y90.9 Presence of alcohol in blood, level not specified
CPT/HCPCS: 36415; 80053; 80305; 80320; 81001; 84443; 85025; 87811; 99283; 99284